=== PATIENT | male | born 2000 | race Caucasian/White ===

== ENCOUNTER 2023-01-27 17:11 | Emergency (ER) | payer BC ==
--- OUTSIDE RECORDS SUMMARY | 2023-01-27 17:15 | XMS REPORT | Continuity of Care Document ---
:2000 Author Organization [facility] t Address [address] [facility] [place] [address] Care Team Providers Name Role Phone АНДРЕЙ HERNANDEZ Primary Care Physician Unavailable TYLOR BARRETT Attending Clinician Unavailable TYLOR BARRETT Attending Clinician Unavailable FREDY HECK Attending Clinician Unavailable Tylor Barrett MD Attending Clinician KINJAL CANO Attending Clinician Unavailable Kinjal Cano PA-C Attending Clinician Unknown, Attending Attending Clinician Unavailable Fredy Heck MD Attending Clinician ANKUSH HANSON Attending Clinician Unavailable Ankush Hanson DO Attending Clinician [facility] Attending Clinician Unavailable Doctor Unassigned, [place] Attending Clinician Unavailable DAQUAN PONCE Attending Clinician Unavailable Daquan Trujillo Attending Clinician LANDRY DE JESUS Attending Clinician Unavailable Landry Moses Attending Clinician FRED MICHELLE Attending Clinician Unavailable Homero Ward DO Attending Clinician Melquiades Kemp MD Attending Clinician Rosio Odell RN Attending Clinician Unavailable Irma Salcido Attending Clinician IRMA LEARY Attending Clinician Unavailable LARISA LUND Attending Clinician Unavailable Larisa Lund MD Attending Clinician Cristi Rose Attending Clinician CRISTI RANGEL Attending Clinician Unavailable FREDY HECK Admitting Clinician Unavailable DAQUAN PONCE Admitting Clinician Unavailable LANDRY DE JESUS Admitting Clinician Unavailable FRED MICHELLE Admitting Clinician Unavailable LARISA LUND Admitting Clinician Unavailable CRISTI RANGEL Admitting Clinician Unavailable Payers Payer Name Policy Type Policy Number Effective Date Expiration Date S kadeem [employer] [place] - [id number] 2014 OUT OF STATE 00:00:00 [facility] [id number] 2017 00:00:00 CIGNA II [id number] 2020 00:00:00 Problems Condition Condition Condition Status Onset Resolution Last Treating Co mments Source Name Details Category Date Date Treatment Clinician Date Nicotine Nicotine Disease Active Unive rs dependence dependence 8- it y of , , 00:00: [place] unspecifie unspecifie 00 Me dical d, d, Branch uncomplica uncomplica dayday dayday COVID-19 COVID-19 Disease Active 2020-06 Unive rs 2-30 ity of 00:00: [place] 00 Medical Branch Exposure Exposure Disease Active 2020-06 Unive rs to severe to severe 2-30 ity of acute acute 00:00: [place] respirator respirator 00 Me dical y syndrome y syndrome Br anch coronaviru coronaviru s 2 s 2 (SARS-CoV- (SARS-CoV- 2) 2) Screening Screening Disease Active 2020-06 Uni vers for other for other 0-18 ity of specific specific 00:00: [place] viral and viral and 00 Medi agueda chlamydial chlamydial Br anch diseases diseases Chronic Chronic Disease Active Univers fatigue fatigue 8-13 ity of syndrome syndrome 00:00: [place] 00 Medical Branch Allergic Allergic Disease Active Unive rs rhinitis rhinitis 8-06 ity of 00:00: [place] 00 Medical Branch Anxiety Anxiety Disease Active Univers 8-06 ity of 00:00: [place] 00 Medical Branch Attention- Attention- Disease Active U nivers deficit deficit 8-06 ity of hyperactiv [place]activ [place] 00 Medical disorder, disorder, Bran ch unspecifie unspecifie d type d type Depressive Depressive Disease Active U nivers disorder disorder 01-26 ity of 00:00: [place] 00 Medical Branch Gastroesop Gastroesop Disease Active U nivers hageal hageal 01-26 ity of reflux reflux 00:00: [place] disease disease 00 Medical Branch Supraventr Supraventr Disease Active U nivers icular icular 01-26 ity of tachycardi tachycardi [place] Acute Acute Disease Active Univers postoperat postoperat 11-21 it y of lefty lefty 00:00: [place] abdominal abdominal 00 [facility] pain pain Branch Allergies, Adverse Reactions, Alerts Allergy Allergy Status Severity Reaction(s) Onset Inactive Treating Comm ents Source Name Type Date Date Clinician NO KNOWN Drug Active [facility] Social History Social Habit Start Date Stop Date Quantity Comments Source History of Smokes tobacco [facility] tobacco use daily [facility] Exposure to 2022-04-21 2022-05-01 Not sure [facility] SARS-CoV-2 00:00:00 14:14:00 [facility] (event) Branch Alcohol intake 2022-05-01 2022-05-01 Current University of 00:00:00 00:00:00 non-drinker of [facility] alcohol (finding) Branch Tobacco use and 2022-03-14 2022-03-14 Smokeless tobacco Un iversity of exposure 00:00:00 00:00:00 non-user [facility] Tobacco Comment 2022-03-14 2022-03-14 Pt. vapes daily Univ ersity of 00:00:00 00:00:00 [facility] Sex Assigned At 2000 2000 Universit y of 00:00:00 00:00:00 [facility] Smoking Status Start Date Stop Date Source Smokes tobacco daily 2022-03-14 00:00:00 [facility] it of [facility] Never smoker [facility] Medications Ordered Filled Start Stop Current Ordering Indication Dosage Frequency Signature Comments Components Source Medication Medication Date Date Medication? Clinician (SIG) Name Name amoxicillin 2021-06- No [id number] 1{tbl} Take 1 Univers -clavulanat 06-29 11-15 tablet by it y of e 00:00: 05:59 mouth in [place] (AUGMENTIN) 00 :00 the Medical 875-125 mg morning Branch per tablet and 1 tablet in the evening. Do all this for 7 days. amoxicillin 2021-06- No [id number] 1{tbl} Take 1 Univers -clavulanat 1-07 11-15 tablet by it y of e 00:00: 05:59 mouth in [place] (AUGMENTIN) 00 :00 the Medical 875-125 mg morning Branch per tablet and 1 tablet in the evening. Do all this for 7 days. amoxicillin 2021-06- No [id number] 1{tbl} Take 1 Univers -clavulanat 1-07 11-15 tablet by it y of e 00:00: 05:59 mouth in [place] (AUGMENTIN) 00 :00 the Medical 875-125 mg morning Branch per tablet and 1 tablet in the evening. Do all this for 7 days. amoxicillin 2021-06- No [id number] 1{tbl} Take 1 Univers -clavulanat 1-07 11-15 tablet by it y of e 00:00: 05:59 mouth in [place] (AUGMENTIN) 00 :00 the Medical 875-125 mg morning Branch per tablet and 1 tablet in the evening. Do all this for 7 days. NaCl 0.9% 2021- No 1000mL at 999 Uni vers (NS) bolus 8-30 08-30 mL/hr, ity of infusion 03:30: 04:00 1,000 mL, [place] as 1,000 mL 00 :00 IV Medical Infusion, Branch ONCE, 1 dose, On Fri02/18/22 at 2230, JOSE cyclobenzap 2021- No 10mg 10 mg, Uni vers rine 12-27 Oral, ity of (FLEXERIL) 04:15: 03:12 ONCE, 1 [place] as tablet 10 00 :00 dose, On Medica l mg Fri12/26/21 Branch at 2315, Routine ketorolac 2021- No 30mg 30 mg, Unive rs (TORADOL) 12-27 Intramuscu ity of injection 03:15: 03:12 [place], ONCE, [place] 30 mg 00 :00 1 dose, On Medical Fri12/26/21 Branch at 2215, JOSE ibuprofen 2-0 Yes [id number] 800mg Take 1 Univers 800 mg 7-06 tablet by ity of tablet 00:00: mouth [place] 00 every 8 Medical (eight) Branch hours as needed for Pain (scale 4-6). methocarbam 2022-0 Yes [id number] 750mg Take 1 Univers oL 7-06 tablet by ity of (ROBAXIN-75 00:00: mouth 4 [place] 0) 750 mg 00 (four) Medical tablet times Branch daily as needed for Pain (scale 7-10). ibuprofen 2022-0 Yes [id number] 800mg Take 1 Univers 800 mg 7-06 tablet by ity of tablet 00:00: mouth [place] 00 every 8 Medical (eight) Branch hours as needed for Pain (scale 4-6). methocarbam 2022-0 Yes [id number] 750mg Take 1 Univers oL 7-06 tablet by ity of (ROBAXIN-75 00:00: mouth 4 [place] 0) 750 mg 00 (four) Medical tablet times Branch daily as needed for Pain (scale 7-10). ibuprofen 2-0 Yes [id number] 800mg Take 1 Univers 800 mg 7-06 tablet by ity of tablet 00:00: mouth [place] 00 every 8 Medical (eight) Branch hours as needed for Pain (scale 4-6). methocarbam 2022-0 Yes [id number] 750mg Take 1 Univers oL 7-06 tablet by ity of (ROBAXIN-75 00:00: mouth 4 [place] 0) 750 mg 00 (four) Medical tablet times Branch daily as needed for Pain (scale 7-10). ibuprofen 2-0 Yes [id number] 800mg Take 1 Univers 800 mg 7-06 tablet by ity of tablet 00:00: mouth [place] 00 every 8 Medical (eight) Branch hours as needed for Pain (scale 4-6). methocarbam 2022-0 Yes [id number] 750mg Take 1 Univers oL 7-06 tablet by ity of (ROBAXIN-75 00:00: mouth 4 [place] 0) 750 mg 00 (four) Medical tablet times Branch daily as needed for Pain (scale 7-10). ibuprofen 2022-0 Yes [id number] 800mg Take 1 Univers 800 mg 7-06 tablet by ity of tablet 00:00: mouth [place] 00 every 8 Medical (eight) Branch hours as needed for Pain (scale 4-6). methocarbam 2022-0 Yes [id number] 750mg Take 1 Univers oL 7-06 tablet by ity of (ROBAXIN-75 00:00: mouth 4 [place] 0) 750 mg 00 (four) Medical tablet times Branch daily as needed for Pain (scale 7-10). ibuprofen 2-0 Yes [id number] 800mg Take 1 Univers 800 mg 7-06 tablet by ity of tablet 00:00: mouth [place] 00 every 8 Medical (eight) Branch hours as needed for Pain (scale 4-6). methocarbam 2022-0 Yes [id number] 750mg Take 1 Univers oL 7-06 tablet by ity of (ROBAXIN-75 00:00: mouth 4 [place] 0) 750 mg 00 (four) Medical tablet times Branch daily as needed for Pain (scale 7-10). ibuprofen 2021-0 Yes [id number] 800mg Take 1 Univers 800 mg 7-06 tablet by ity of tablet 00:00: mouth [place] 00 every 8 Medical (eight) Branch hours as needed for Pain (scale 4-6). methocarbam 2-0 Yes [id number] 750mg Take 1 Univers oL 7-06 tablet by ity of (ROBAXIN-75 00:00: mouth 4 [place] 0) 750 mg 00 (four) Medical tablet times Branch daily as needed for Pain (scale 7-10). ibuprofen 2-0 Yes [id number] 800mg Take 1 Univers 800 mg 7-06 tablet by ity of tablet 00:00: mouth [place] 00 every 8 Medical (eight) Branch hours as needed for Pain (scale 4-6). methocarbam 2022-0 Yes [id number] 750mg Take 1 Univers oL 7-06 tablet by ity of (ROBAXIN-75 00:00: mouth 4 [place] 0) 750 mg 00 (four) Medical tablet times Branch daily as needed for Pain (scale 7-10). ibuprofen 2022-0 Yes [id number] 800mg Take 1 Univers 800 mg 7-06 tablet by ity of tablet 00:00: mouth [place] 00 every 8 Medical (eight) Branch hours as needed for Pain (scale 4-6). methocarbam 2022-0 Yes [id number] 750mg Take 1 Univers oL 7-06 tablet by ity of (ROBAXIN-75 00:00: mouth 4 [place] 0) 750 mg 00 (four) Medical tablet times Branch daily as needed for Pain (scale 7-10). ibuprofen 2021-0 Yes [id number] 800mg Take 1 Univers 800 mg 7-06 tablet by ity of tablet 00:00: mouth [place] 00 every 8 Medical (eight) Branch hours as needed for Pain (scale 4-6). methocarbam 2021-0 Yes [id number] 750mg Take 1 Univers oL 7-06 tablet by ity of (ROBAXIN-75 00:00: mouth 4 [place] 0) 750 mg 00 (four) Medical tablet times Branch daily as needed for Pain (scale 7-10). ibuprofen 2021-0 Yes [id number] 800mg Take 1 Univers 800 mg 7-06 tablet by ity of tablet 00:00: mouth [place] 00 every 8 Medical (eight) Branch hours as needed for Pain (scale 4-6). methocarbam 2021-0 Yes [id number] 750mg Take 1 Univers oL 7-06 tablet by ity of (ROBAXIN-75 00:00: mouth 4 [place] 0) 750 mg 00 (four) Medical tablet times Branch daily as needed for Pain (scale 7-10). ibuprofen 2021-0 Yes [id number] 800mg Take 1 Univers 800 mg 7-06 tablet by ity of tablet 00:00: mouth [place] 00 every 8 Medical (eight) Branch hours as needed for Pain (scale 4-6). methocarbam 2021-0 Yes [id number] 750mg Take 1 Univers oL 7-06 tablet by ity of (ROBAXIN-75 00:00: mouth 4 [place] 0) 750 mg 00 (four) Medical tablet times Branch daily as needed for Pain (scale 7-10). ibuprofen 2021-0 Yes [id number] 800mg Take 1 Univers 800 mg 7-06 tablet by ity of tablet 00:00: mouth [place] 00 every 8 Medical (eight) Branch hours as needed for Pain (scale 4-6). methocarbam 2022-0 Yes [id number] 750mg Take 1 Univers oL 7-06 tablet by ity of (ROBAXIN-75 00:00: mouth 4 [place] 0) 750 mg 00 (four) Medical tablet times Branch daily as needed for Pain (scale 7-10). ibuprofen 2022-0 Yes [id number] 800mg Take 1 Univers 800 mg 7-06 tablet by ity of tablet 00:00: mouth [place] 00 every 8 Medical (eight) Branch hours as needed for Pain (scale 4-6). methocarbam 2022-0 Yes [id number] 750mg Take 1 Univers oL 7-06 tablet by ity of (ROBAXIN-75 00:00: mouth 4 [place] 0) 750 mg 00 (four) Medical tablet times Branch daily as needed for Pain (scale 7-10). ibuprofen 2-0 Yes [id number] 800mg Take 1 Univers 800 mg 7-06 tablet by ity of tablet 00:00: mouth [place] 00 every 8 Medical (eight) Branch hours as needed for Pain (scale 4-6). methocarbam 2022-0 Yes [id number] 750mg Take 1 Univers oL 7-06 tablet by ity of (ROBAXIN-75 00:00: mouth 4 [place] 0) 750 mg 00 (four) Medical tablet times Branch daily as needed for Pain (scale 7-10). ibuprofen 2-0 Yes [id number] 800mg Take 1 Univers 800 mg 7-06 tablet by ity of tablet 00:00: mouth [place] 00 every 8 Medical (eight) Branch hours as needed for Pain (scale 4-6). methocarbam 2022-0 Yes [id number] 750mg Take 1 Univers oL 7-06 tablet by ity of (ROBAXIN-75 00:00: mouth 4 [place] 0) 750 mg 00 (four) Medical tablet times Branch daily as needed for Pain (scale 7-10). ibuprofen 2-0 Yes [id number] 800mg Take 1 Univers 800 mg 7-06 tablet by ity of tablet 00:00: mouth [place] 00 every 8 Medical (eight) Branch hours as needed for Pain (scale 4-6). methocarbam 2022-0 Yes [id number] 750mg Take 1 Univers oL 7-06 tablet by ity of (ROBAXIN-75 00:00: mouth 4 [place] 0) 750 mg 00 (four) Medical tablet times Branch daily as needed for Pain (scale 7-10). ibuprofen 2022-0 Yes [id number] 800mg Take 1 Univers 800 mg 7-06 tablet by ity of tablet 00:00: mouth [place] 00 every 8 Medical (eight) Branch hours as needed for Pain (scale 4-6). methocarbam 2021-0 Yes [id number] 750mg Take 1 Univers oL 7-06 tablet by ity of (ROBAXIN-75 00:00: mouth 4 [place] 0) 750 mg 00 (four) Medical tablet times Branch daily as needed for Pain (scale 7-10). ibuprofen 2021-0 Yes [id number] 800mg Take 1 Univers 800 mg 7-06 tablet by ity of tablet 00:00: mouth [place] 00 every 8 Medical (eight) Branch hours as needed for Pain (scale 4-6). methocarbam 2021-0 Yes [id number] 750mg Take 1 Univers oL 7-06 tablet by ity of (ROBAXIN-75 00:00: mouth 4 [place] 0) 750 mg 00 (four) Medical tablet times Branch daily as needed for Pain (scale 7-10). acetaminoph 2020-0 2020- No 1{tbl} 1 tablet, Univers en-codeine -12 26-07 Oral, ity of (TYLENOL 05:00: 04:14 ONCE, 1 [place] #3) 300-30 00 :00 dose, [place] Medi agueda mg tablet 1 11/28/19 at [facility] tablet 0000, JOSE acetaminoph 2020-0 2020- No 1{tbl} 1 tablet, Univers en-codeine 6-12 26-07 Oral, ity of (TYLENOL 05:00: 04:14 ONCE, 1 [place] #3) 300-30 00 :00 dose, [place] Medi agueda mg tablet 1 11/28/19 at [facility] tablet 0000, JOSE acetaminoph 2020-0 Yes [id number] 1{tbl} Take 1 Univers en-codeine 6-07 [id number] tablet by it y of 300-30 mg 00:00: mouth [place] tablet 00 every 6 Medical (six) Branch hours as needed for Pain (scale 4-6). acetaminoph 2020-0 Yes [id number] 1{tbl} Take 1 Univers en-codeine 6-07 [id number] tablet by it y of 300-30 mg 00:00: mouth [place] tablet 00 every 6 Medical (six) Branch hours as needed for Pain (scale 4-6). acetaminoph 2020-0 Yes [id number] 1{tbl} Take 1 Univers en-codeine 6-07 [id number] tablet by it y of 300-30 mg 00:00: mouth [place] tablet 00 every 6 Medical (six) Branch hours as needed for Pain (scale 4-6). acetaminoph 2020-0 Yes [id number] 1{tbl} Take 1 Univers en-codeine 6-07 [id number] tablet by it y of 300-30 mg 00:00: mouth [place] tablet 00 every 6 Medical (six) Branch hours as needed for Pain (scale 4-6). acetaminoph 2020-0 Yes [id number] 1{tbl} Take 1 Univers en-codeine 6-07 [id number] tablet by it y of 300-30 mg 00:00: mouth [place] tablet 00 every 6 Medical (six) Branch hours as needed for Pain (scale 4-6). acetaminoph 2020-0 Yes [id number] 1{tbl} Take 1 Univers en-codeine 6-07 [id number] tablet by it y of 300-30 mg 00:00: mouth [place] tablet 00 every 6 Medical (six) Branch hours as needed for Pain (scale 4-6). acetaminoph 2020-0 Yes [id number] 1{tbl} Take 1 Univers en-codeine 6-07 [id number] tablet by it y of 300-30 mg 00:00: mouth [place] tablet 00 every 6 Medical (six) Branch hours as needed for Pain (scale 4-6). acetaminoph 2020-0 Yes [id number] 1{tbl} Take 1 Univers en-codeine 6-07 [id number] tablet by it y of 300-30 mg 00:00: mouth [place] tablet 00 every 6 Medical (six) Branch hours as needed for Pain (scale 4-6). acetaminoph 2020-0 Yes [id number] 1{tbl} Take 1 Univers en-codeine 6-07 [id number] tablet by it y of 300-30 mg 00:00: mouth [place] tablet 00 every 6 Medical (six) Branch hours as needed for Pain (scale 4-6). acetaminoph 2020-0 Yes [id number] 1{tbl} Take 1 Univers en-codeine 6-07 [id number] tablet by it y of 300-30 mg 00:00: mouth [place] tablet 00 every 6 Medical (six) Branch hours as needed for Pain (scale 4-6). acetaminoph 2020-0 Yes [id number] 1{tbl} Take 1 Univers en-codeine 6-07 [id number] tablet by it y of 300-30 mg 00:00: mouth [place] tablet 00 every 6 Medical (six) Branch hours as needed for Pain (scale 4-6). acetaminoph 2020-0 Yes [id number] 1{tbl} Take 1 Univers en-codeine 6-07 [id number] tablet by it y of 300-30 mg 00:00: mouth [place] tablet 00 every 6 Medical (six) Branch hours as needed for Pain (scale 4-6). acetaminoph 2020-0 Yes [id number] 1{tbl} Take 1 Univers en-codeine 6-07 [id number] tablet by it y of 300-30 mg 00:00: mouth [place] tablet 00 every 6 Medical (six) Branch hours as needed for Pain (scale 4-6). acetaminoph 2020-0 Yes [id number] 1{tbl} Take 1 Univers en-codeine 6-07 [id number] tablet by it y of 300-30 mg 00:00: mouth [place] tablet 00 every 6 Medical (six) Branch hours as needed for Pain (scale 4-6). acetaminoph 2020-0 Yes [id number] 1{tbl} Take 1 Univers en-codeine 6-07 [id number] tablet by it y of 300-30 mg 00:00: mouth [place] tablet 00 every 6 Medical (six) Branch hours as needed for Pain (scale 4-6). acetaminoph 2020-0 Yes [id number] 1{tbl} Take 1 Univers en-codeine 6-07 [id number] tablet by it y of 300-30 mg 00:00: mouth [place] tablet 00 every 6 Medical (six) Branch hours as needed for Pain (scale 4-6). acetaminoph 2020-0 Yes [id number] 1{tbl} Take 1 Univers en-codeine 6-07 [id number] tablet by it y of 300-30 mg 00:00: mouth [place] tablet 00 every 6 Medical (six) Branch hours as needed for Pain (scale 4-6). acetaminoph 2020-0 Yes [id number] 1{tbl} Take 1 Univers en-codeine 6-07 [id number] tablet by it y of 300-30 mg 00:00: mouth [place] tablet 00 every 6 Medical (six) Branch hours as needed for Pain (scale 4-6). acetaminoph 2020-0 Yes [id number] 1{tbl} Take 1 Univers en-codeine 6-07 [id number] tablet by it y of 300-30 mg 00:00: mouth [place] tablet 00 every 6 Medical (six) Branch hours as needed for Pain (scale 4-6). acetaminoph 2020-0 Yes [id number] 1{tbl} Take 1 Univers en-codeine 6-07 [id number] tablet by it y of 300-30 mg 00:00: mouth [place] tablet 00 every 6 Medical (six) Branch hours as needed for Pain (scale 4-6). acetaminoph 2020-0 Yes [id number] 1{tbl} Take 1 Univers en-codeine 6-07 [id number] tablet by it y of 300-30 mg 00:00: mouth [place] tablet 00 every 6 Medical (six) Branch hours as needed for Pain (scale 4-6). acetaminoph 2020-0 Yes [id number] 1{tbl} Take 1 Univers en-codeine 6-07 [id number] tablet by it y of 300-30 mg 00:00: mouth [place] tablet 00 every 6 Medical (six) Branch hours as needed for Pain (scale 4-6). acetaminoph 2020-0 Yes [id number] 1{tbl} Take 1 Univers en-codeine 6-07 [id number] tablet by it y of 300-30 mg 00:00: mouth [place] tablet 00 every 6 Medical (six) Branch hours as needed for Pain (scale 4-6). acetaminoph 2020-0 Yes [id number] 1{tbl} Take 1 Univers en-codeine 6-07 [id number] tablet by it y of 300-30 mg 00:00: mouth [place] tablet 00 every 6 Medical (six) Branch hours as needed for Pain (scale 4-6). acetaminoph 2020-0 Yes [id number] 1{tbl} Take 1 Univers en-codeine 6-07 [id number] tablet by it y of 300-30 mg 00:00: mouth [place] tablet 00 every 6 Medical (six) Branch hours as needed for Pain (scale 4-6). acetaminoph 2020-0 Yes [id number] 1{tbl} Take 1 Univers en-codeine 6-07 [id number] tablet by it y of 300-30 mg 00:00: mouth [place] tablet 00 every 6 Medical (six) Branch hours as needed for Pain (scale 4-6). acetaminoph 2020-0 Yes [id number] 1{tbl} Take 1 Univers en-codeine 6-07 [id number] tablet by it y of 300-30 mg 00:00: mouth [place] tablet 00 every 6 Medical (six) Branch hours as needed for Pain (scale 4-6). acetaminoph 2020-0 Yes [id number] 1{tbl} Take 1 Univers en-codeine 6-07 [id number] tablet by it y of 300-30 mg 00:00: mouth [place] tablet 00 every 6 Medical (six) Branch hours as needed for Pain (scale 4-6). acetaminoph 2020-0 Yes [id number] 1{tbl} Take 1 Univers en-codeine 6-07 [id number] tablet by it y of 300-30 mg 00:00: mouth [place] tablet 00 every 6 Medical (six) Branch hours as needed for Pain (scale 4-6). acetaminoph 2020-0 Yes [id number] 1{tbl} Take 1 Univers en-codeine 6-07 [id number] tablet by it y of 300-30 mg 00:00: mouth [place] tablet 00 every 6 Medical (six) Branch hours as needed for Pain (scale 4-6). acetaminoph 2020-0 Yes [id number] 1{tbl} Take 1 Univers en-codeine 6-07 [id number] tablet by it y of 300-30 mg 00:00: mouth [place] tablet 00 every 6 Medical (six) Branch hours as needed for Pain (scale 4-6). acetaminoph 2020-0 Yes [id number] 1{tbl} Take 1 Univers en-codeine 6-07 [id number] tablet by it y of 300-30 mg 00:00: mouth [place] tablet 00 every 6 Medical (six) Branch hours as needed for Pain (scale 4-6). acetaminoph 2020-0 Yes [id number] 1{tbl} Take 1 Univers en-codeine 6-07 [id number] tablet by it y of 300-30 mg 00:00: mouth [place] tablet 00 every 6 Medical (six) Branch hours as needed for Pain (scale 4-6). acetaminoph 2020-0 Yes [id number] 1{tbl} Take 1 Univers en-codeine 6-07 [id number] tablet by it y of 300-30 mg 00:00: mouth [place] tablet 00 every 6 Medical (six) Branch hours as needed for Pain (scale 4-6). acetaminoph 2019-0 Yes [id number] 1{tbl} Take 1 Univers en-codeine 11-27 [id number] tablet by it y of 300-30 mg 00:00: mouth [place] tablet 00 every 6 Medical (six) Branch hours as needed for Pain (scale 4-6). acetaminoph 2020- No [id number] 1{tbl} Take 1 Univers en-codeine 6- 06- [id number] tablet by i ty of 300-30 mg 00:00: 00:00 mouth [place] tablet 00 :00 every 6 Medical (six) Branch hours as needed for Pain (scale 4-6). lisdexamfet Yes 50mg Take 50 mg Univers amine 50 mg 6-02 by mouth ity of capsule 14:57: as needed. [address] lisdexamfet Yes 50mg Take 50 mg Univers amine 50 mg 6-02 by mouth ity of capsule 14:57: as needed. [address] lisdexamfet Yes 50mg Take 50 mg Univers amine 50 mg 6-02 by mouth ity of capsule 14:57: as needed. [address] lisdexamfet Yes 50mg Take 50 mg Univers amine 50 mg 6-02 by mouth ity of capsule 14:57: as needed. [address] lisdexamfet Yes 50mg Take 50 mg Univers amine 50 mg 6-02 by mouth ity of capsule 14:57: as needed. [address] lisdexamfet Yes 50mg Take 50 mg Univers amine 50 mg 6-02 by mouth ity of capsule 14:57: as needed. [address] lisdexamfet Yes 50mg Take 50 mg Univers amine 50 mg 6-02 by mouth ity of capsule 14:57: as needed. [address] lisdexamfet Yes 50mg Take 50 mg Univers amine 50 mg 6-02 by mouth ity of capsule 14:57: as needed. [address] lisdexamfet Yes 50mg Take 50 mg Univers amine 50 mg 6-02 by mouth ity of capsule 14:57: as needed. [address] [facility] Yes 50mg Take 50 mg Univers amine 50 mg 6-02 by mouth ity of capsule 14:57: as needed. [address] [facility] Yes 50mg Take 50 mg Univers amine 50 mg 6-02 by mouth ity of capsule 14:57: as needed. [address] Yes 50mg Take 50 mg Univers amine 50 mg 6-02 by mouth ity of capsule 14:57: as needed. [address] [facility] Yes 50mg Take 50 mg Univers amine 50 mg 6-02 by mouth ity of capsule 14:57: as needed. [address] Yes 50mg Take 50 mg Univers amine 50 mg 6-02 by mouth ity of capsule 14:57: as needed. [address] Yes 50mg Take 50 mg Univers amine 50 mg 6-02 by mouth ity of capsule 14:57: as needed. [address] Yes 50mg Take 50 mg Univers amine 50 mg 6-02 by mouth ity of capsule 09:57: as needed. [address] Yes 50mg Take 50 mg Univers amine 50 mg 6-02 by mouth ity of capsule 09:57: as needed. [address] Yes 50mg Take 50 mg Univers amine 50 mg 6-02 by mouth ity of capsule 09:57: as needed. [address] Yes 50mg Take 50 mg Univers amine 50 mg 6-02 by mouth ity of capsule 09:57: as needed. [address] Yes 50mg Take 50 mg Univers amine 50 mg 6-02 by mouth ity of capsule 09:57: as needed. [address] [facility] Yes 50mg Take 50 mg Univers amine 50 mg 6-02 by mouth ity of capsule 09:57: as needed. [address] Yes 50mg Take 50 mg Univers amine 50 mg 6-02 by mouth ity of capsule 09:57: as needed. [address] Yes 50mg Take 50 mg Univers amine 50 mg 6-02 by mouth ity of capsule 09:57: as needed. [address] Yes 50mg Take 50 mg Univers amine 50 mg 6-02 by mouth ity of capsule 09:57: as needed. [address] Yes 50mg Take 50 mg Univers amine 50 mg 6-02 by mouth ity of capsule 09:57: as needed. [address] Yes 50mg Take 50 mg Univers amine 50 mg 6-02 by mouth ity of capsule 09:57: as needed. [address] Yes 50mg Take 50 mg Univers amine 50 mg 6-02 by mouth ity of capsule 09:57: as needed. [address] Yes 50mg Take 50 mg Univers amine 50 mg 6-02 by mouth ity of capsule 09:57: as needed. [address] Yes 50mg Take 50 mg Univers amine 50 mg 6-02 by mouth ity of capsule 09:57: as needed. [address] Yes 50mg Take 50 mg Univers amine 50 mg 6-02 by mouth ity of capsule 09:57: as needed. [address] Yes 50mg Take 50 mg Univers amine 50 mg 6-02 by mouth ity of capsule 09:57: as needed. [address] Yes 50mg Take 50 mg Univers amine 50 mg 6-02 by mouth ity of capsule 09:57: as needed. [address] Yes 50mg Take 50 mg Univers amine 50 mg 6-02 by mouth ity of capsule 09:57: as needed. [address] Yes 50mg Take 50 mg Univers amine 50 mg 6-02 by mouth ity of capsule 09:57: as needed. Kaden arboleda [address] [place] [address] lisdexamfet 2018-0 Yes 50mg Take 50 mg Univers amine 50 mg 6-02 by mouth ity of capsule 09:57: as needed. [facility] [address] [place] [address] Vital Signs Vital Name Observation Time Observation Value Comments Source Systolic blood 2022-05-01 20:37:00 127 mm[Hg] [facility]iver [facility] Diastolic blood 2022-05-01 20:37:00 81 mm[Hg] Unive rsity [facility] Heart rate 2022-05-01 20:37:00 98 /min Universi ty [facility] Respiratory rate 2022-05-01 20:37:00 19 /min [facility] Body height 2022-05-01 20:37:00 180.3 cm Universi ty [facility] Body weight 2022-05-01 20:37:00 132.45 kg Universi ty [facility] BMI 2022-05-01 20:37:00 40.73 kg/m2 [facility] [place] [facility] [place] Oxygen saturation in 2022-05-01 20:37:00 95 /min University of Arterial blood by [place] [employer] Pulse oximetry Branch Systolic blood 2022-04-30 00:04:00 137 mm[Hg] Univer sity [facility] Diastolic blood 2022-04-30 00:04:00 82 mm[Hg] Unive rsity [facility] Heart rate 2022-04-30 00:03:00 88 /min Universi ty [facility] Body temperature 2022-04-30 00:03:00 37.28 Sepideh Univ ersity [facility] Respiratory rate 2022-04-30 00:03:00 18 /min Univ ersity [facility] Body height 2022-04-30 00:03:00 180.3 cm [facility]i ty [facility] [place] [facility] [place] Body weight 2022-04-30 00:03:00 132.224 kg [facility] [place] [facility] [place] BMI 2022-04-30 00:03:00 40.66 kg/m2 Universi ty of [facility] Oxygen saturation in 2022-04-30 00:03:00 99 /min University of Arterial blood by [place] [employer] Pulse oximetry Branch Systolic blood 2022-04-02 04:30:00 118 mm[Hg] Univer sity of [facility] Diastolic blood 2022-04-02 04:30:00 67 mm[Hg] Unive rsity of [facility] Heart rate 2022-04-02 04:30:00 67 /min Universi ty [facility] Respiratory rate 2022-04-02 04:30:00 16 /min Univ ersity [facility] Oxygen saturation in 2022-04-02 04:30:00 98 /min University of Arterial blood by [facility] Pulse oximetry Branch Body temperature 2022-04-02 02:36:00 37 Sepideh Univ ersity [facility] [place] [facility] Body height 2022-04-02 02:36:00 177.8 cm Universi ty [facility] [place] [facility] Body weight 2022-04-02 02:36:00 129.729 kg [facility]i ty [facility] [place] [facility] BMI 2022-04-02 02:36:00 41.04 kg/m2 Universi ty [facility] Systolic blood 2022-03-14 19:36:00 126 mm[Hg] Univer sity of [facility] [place] [facility] Diastolic blood 2022-03-14 19:36:00 83 mm[Hg] Unive rsity of [facility] [place] [facility] Heart rate 2022-03-14 19:36:00 85 /min Universi ty [facility] Respiratory rate 2022-03-14 19:36:00 21 /min Univ ersity [facility] [place] [facility] Body height 2022-03-14 19:36:00 180.3 cm [facility]i [facility] Body weight 2022-03-14 19:36:00 128.867 kg [facility]i [facility] BMI 2022-03-14 19:36:00 39.62 kg/m2 [facility] Oxygen saturation in 2022-03-14 19:36:00 97 /min University of Arterial blood by [facility] Pulse oximetry Branch Systolic blood 2022-02-19 04:29:00 119 mm[Hg] Univer sity of [facility] Diastolic blood 2022-02-19 04:29:00 66 mm[Hg] Unive rsity of [facility] [place] [facility] Heart rate 2022-02-19 04:29:00 80 /min Universi ty [facility] Respiratory rate 2022-02-19 04:29:00 18 /min Univ ersity [facility] [place] [facility] Oxygen saturation in 2022-02-19 04:29:00 98 /min University of Arterial blood by [facility] Pulse oximetry Branch Body temperature 2022-02-19 02:28:00 37.17 Sepideh Univ ersity [facility] [place] [facility] Body height 2022-02-19 02:28:00 177.8 cm [facility]i [facility] [place] [facility] Body weight 2022-02-19 02:28:00 130.092 kg [facility] [place] [facility] BMI 2022-02-19 02:28:00 41.15 kg/m2 [facility] [place] [facility] Systolic blood 2021-12-27 02:46:00 170 mm[Hg] Univer sity of [facility] [place] [facility] Diastolic blood 2021-12-27 02:46:00 92 mm[Hg] Unive rsity of [facility] [place] [facility] Heart rate 2021-12-27 02:46:00 103 /min Universi ty [facility] [place] [facility] Body temperature 2021-12-27 02:46:00 37.44 Sepideh Univ ersity [facility] [place] [facility] Respiratory rate 2021-12-27 02:46:00 18 /min Univ ersity [facility] [place] [facility] Body height 2021-12-27 02:46:00 180.3 cm [facility]i [facility] [place] [facility] Body weight 2021-12-27 02:46:00 127.007 kg [facility] [place] [facility] BMI 2021-12-27 02:46:00 39.05 kg/m2 [facility] [place] [facility] Oxygen saturation in 2021-12-27 02:46:00 98 /min University of Arterial blood by [facility] Pulse oximetry Branch Systolic blood 2020-01-16 08:39:00 116 mm[Hg] Univer sity of [facility] [place] [facility] Diastolic blood 2020-01-16 08:39:00 74 mm[Hg] Unive rsity of [facility] [place] [facility] Body temperature 2020-01-16 08:39:00 37.17 Sepideh Univ ersity [facility] [place] [facility] Heart rate 2020-01-16 08:31:00 90 /min [facility]i ty [facility] [place] [facility] Respiratory rate 2020-01-16 08:31:00 16 /min Univ ersity [facility] [place] [facility] Body height 2020-01-16 08:31:00 177.8 cm [facility] [place] [facility] Body weight 2020-01-16 08:31:00 127.007 kg [facility] [place] [facility] BMI 2020-01-16 08:31:00 40.18 kg/m2 [facility] [place] [facility] Oxygen saturation in 2020-01-16 08:31:00 100 /min University of Arterial blood by [facility] Pulse oximetry Branch Systolic blood 2020-01-16 08:39:00 116 mm[Hg] Univer sity of [facility] [place] [facility] Diastolic blood 2020-01-16 08:39:00 74 mm[Hg] Unive rsity of [facility] [place] [facility] Body temperature 2020-01-16 08:39:00 37.17 Sepideh Univ ersity [facility] [place] [facility] Heart rate 2020-01-16 08:31:00 90 /min [facility]i ty [facility] [place] [facility] Respiratory rate 2020-01-16 08:31:00 16 /min Univ ersity [facility] [place] [facility] Body height 2020-01-16 08:31:00 177.8 cm [facility] [place] [facility] Body weight 2020-01-16 08:31:00 127.007 kg [facility] [place] [facility] BMI 2020-01-16 08:31:00 40.18 kg/m2 [facility] [place] [facility] Oxygen saturation in 2020-01-16 08:31:00 100 /min University of Arterial blood by [facility] Pulse oximetry Branch Systolic blood 2020-01-05 18:22:00 116 mm[Hg] Univer sity of [facility] [place] [facility] Diastolic blood 2020-01-05 18:22:00 79 mm[Hg] Unive rsity of [facility] [place] [facility] Heart rate 2020-01-05 18:22:00 74 /min Universi ty [facility] [place] [facility] Body weight 2020-01-05 18:22:00 141.976 kg [facility] [place] [facility] Systolic blood 2020-01-05 18:22:00 116 mm[Hg] Univer sity of [facility] [place] [facility] Diastolic blood 2020-01-05 18:22:00 79 mm[Hg] Unive rsity of [facility] [place] [facility] Heart rate 2020-01-05 18:22:00 74 /min Universi ty [facility] [place] [facility] Body weight 2020-01-05 18:22:00 141.976 kg [facility] Systolic blood 2019-12-15 19:03:00 121 mm[Hg] Univer sit of pressure [facility] Diastolic blood 2019-12-15 19:03:00 84 mm[Hg] Unive rsity of pressure [facility] Heart rate 2019-12-15 19:03:00 99 /min [facility] Systolic blood 2019-11-28 03:37:00 165 mm[Hg] Univer sit of pressure [facility] Diastolic blood 2019-11-28 03:37:00 100 mm[Hg] Unive rsity of [facility] Heart rate 2019-11-28 03:37:00 101 /min [facility] Body temperature 2019-11-28 03:37:00 36.78 Sepideh [facility] Respiratory rate 2019-11-28 03:37:00 16 /min [facility] Body weight 2019-11-28 03:37:00 141.999 kg [facility] Oxygen saturation in 2019-11-28 03:37:00 97 /min [facility] blood by [facility] Pulse oximetry [place] Procedures Procedure Date / Time Performing Clinician Source Performed POCT MOLECULAR FLU 2022-04-30 00:05:00 Unknown, Attending [facility] MAGNESIUM 2022-04-02 03:45:00 [facility] TROPONIN I 2022-04-02 03:45:00 [facility] COMP. METABOLIC PANEL 2022-04-02 03:45:00 Singer Ankush [facility] ([id number]) [facility] CBC WITH DIFF 2022-04-02 03:45:00 [facility] SLEEP STUDY DATA REPORT 2022-03-28 05:01:00 Doctor Unahali, [facility] Name Medical [place] INSURANCE CORRESPONDENCE 2022-03-18 05:01:00 Doctor Malissa, [facility] Name Medical [place] CONSENT/REFUSAL FOR 2022-03-14 19:04:49 Doctor Malissa [facility] DIAGNOSIS AND TREATMENT [place] [facility] EKG-12 LEAD 2022-02-19 05:43:33 Ponce, Daquan [facility] TROPONIN I 2022-02-19 04:50:00 Daquan Ponce [facility] XR CHEST 2 VW 2022-02-19 03:12:00 Daquan Ponce [facility] TROPONIN I 2022-02-19 02:47:00 Daquan Ponce [facility] THYROID STIMULATING 2022-02-19 02:47:00 Daquan Ponce [facility] HORMONE [facility] Branch COMP. METABOLIC PANEL 2022-02-19 02:47:00 Daquan Ponce [facility] ([id number]) [facility] [place] CBC WITH DIFF 2022-02-19 02:47:00 Daquan Ponce [facility] URINALYSIS 2022-02-19 02:47:00 Daquan Ponce [facility] N-TERMINAL PRO-BNP 2022-02-19 02:47:00 Daquan Ponce [facility] URINE DRUG (IMMUNOASSAY) 2022-02-19 02:47:00 Daquan [facility] DRUG Medical [facility] nch SCREEN W/O REFLEX CONSENT/REFUSAL FOR 2022-02-19 02:21:07 Doctor Malissa [facility] DIAGNOSIS AND TREATMENT [place] [facility] [place] COVID-19 (ID NOW RAPID 2021-12-27 03:45:00 Landry De Jesus [facility] TESTING) Medical Branch CT CERVICAL SPINE WO 2021-12-27 03:36:36 Landry De Jesus [facility] CONTRAST Medical [place] CT HEAD WO CONTRAST 2021-12-27 03:36:36 Landry De Jesus [facility] CT LUMBAR SPINE WO 2021-12-27 03:36:36 Landry De Jesus [facility] CONTRAST Medical Branch CT THORACIC SPINE WO 2021-12-27 03:36:36 Landry De Jesus B [facility] CONTRAST Medical Branch NOTICE OF PRIVACY 2021-12-27 02:44:41 Doctor Malissa [facility] PRACTICES [place] [facility] CONSENT/REFUSAL FOR 2021-12-27 02:40:50 Doctor Malissa [facility] DIAGNOSIS AND TREATMENT [place] [facility] NOTICE OF PRIVACY 2021-06-23 04:27:38 Doctor Unassigned, [facility] [place] [facility] ASSIGNMENT OF BENEFITS 2020-01-16 08:26:08 Doctor Unassigned [facility] [place] [facility] NOTICE OF PRIVACY 2020-01-16 08:25:54 Doctor Eugeniasscornelio [facility] [place] [facility] CONSENT/REFUSAL FOR 2020-01-16 08:25:37 Doctor Unasscornelio, [facility] DIAGNOSIS AND TREATMENT [place] [facility] [place] XR FOOT 3+ VW LEFT 2019-12-15 18:52:12 Larisa Lund [facility] XR ANKLE 3+ VW BILATERAL 2019-11-28 04:10:00 Cristi Rangel [facility] XR FOOT 3+ VW LEFT 2019-11-28 04:10:00 Cristi Rangel [facility] XR TIBIA FIBULA 2 VW LEFT 2019-11-28 04:10:00 Cristi Rangel [facility] Encounters Start End Encounter Admission Attending Care Care Encounter Source Date/Time Date/Time Type Type Clinicians Facility Department ID 2021-04-20 Emergency [facility] [id number] [facility] 2022-08-24 2022-08-24 Outpatient R TYLOR BARRETT [facility] [id number] Univers 20:00:00 20:00:00 TYLOR BARRETT [facility] 2022-08-19 2022-08-19 Outpatient R TYLOR BARRETT [facility] [id number] Univers 20:00:00 20:00:[facility] 2022-05-03 2022-05-03 Outpatient R MARIA R [facility] [id number] Univers 08:59:09 23:59:00 FREDY quispe [facility] 2022-05-01 2022-05-01 Office Arnold [facility] [id number] Univers 14:30:00 15:00:00 Visit Tylor RIDLEY [id number] ity [place] [id number] La dical NAL 085 [facility] 2022-05-01 2022-05-01 Outpatient R LUIS BARRETTMODavid [facility] [id number] Univers 14:30:00 14:30:00 LUIS BARRETTDESTINIDavid itisis [facility] 2022-04-29 2022-04-29 Outpatient R OXANA [facility] [id number] Univers 18:00:00 18:22:24 KINJAL itisis [facility] 2022-04-29 2022-04-29 Urgent Kinjal Cano [facility] 1.2.840.114 [id number] Univers 18:00:00 18:22:24 Care Unknown, Attending HEALTH [id number] ity of [place] 4.2.7.2.686 [place] as LAMAR?BLEA [id number] La shruthi KNEY [address] [facility] OFFICE [facility] 2022 2022 Outpatient R MARIA R [facility] [id number] Univers 08:45:15 23:59:00 CHRISTIANAVA tashia o f [facility] 2022 2022 Patient Maria [facility] 1.2.840.114 [id number] Univers 00:00:00 00:00:00 Secure Msg Fredy KEYANA [id number] ity [facility] [place] [id number] La dical NAL 059 [facility] 2022-04-01 2022-04-02 Emergency X SINGER [facility] ERT [id number] Univers 21:46:00 00:04:00 ANKUSH tashia [facility] 2022-04-01 2022-04-02 Emergency [facility] [id number] Univers 21:46:00 00:04:00 Ankush KEYANA 350.1.13.10 i ty [facility] 4.2.[place] [id number] [facility] 084 [place] 2022-04-01 2022-04-01 Telephone Maria [facility] [id number] Univers 00:00:00 00:00:00 Fredy RIDLEY 350.1.13.10 ity [facility] [place] [id number] [place] [id number] [facility] 2022-03-29 2022-03-29 Outpatient R [facility] [id number] Univers 14:00:00 14:00:00 FREDY portery o f [facility] 2022-03-28 2022-03-28 Hearing Aid Mechanic [facility] Sleep Lab [facility] 1.2 .840.114 [id number] Univers 10:00:00 10:15:00 Visit Tylor Barrett 350.1.13. 10 ity [facility] 4[place]2.7.2.[place] [id number] [address] 2022-03-28 2022-03-28 Outpatient R TYLOR BARRETT [facility] [id number] Univers 10:00:00 10:00:00 TYLOR BARRETT ity of [facility] 2022-03-28 2022-03-28 Orders Doctor KINJAL 1.2.840.114 [id number] Univers 00:00:00 00:00:00 Only Unassigned, FROYLAN 350.1.13.10 ity of [place] [facility] 4.2.7.2.686 Alexander as [id number] [address] 2022-03-27 2022-03-27 Telephone Maria [facility] [id number] Univers 00:00:00 00:00:00 Fredy RIDLEY 350.1.13.10 ity of [facility] 4.2.[place] [id number] [place] [id number] [facility] 2022-03-18 2022-03-18 Orders Doctor KINJAL 1.2.840.114 [id number] Univers 00:00:00 00:00:00 Only Unassigned, FROYLAN 350.1.13.10 ity of [place] [facility] 4.2.7.2.686 [place] as [phone] [address] 2022-03-14 2022-03-14 Outpatient R MARIA R, [facility] [id number] Univers 14:20:00 14:53:24 FREDY lao o f [facility] 2022-03-14 2022-03-14 Office Maria [facility] 1.2.840.114 [id number] Univers 14:20:00 14:53:24 Visit Fredy RIDLEY 350.1.13.10 ity [place] [facility] [id number] La dical [facility] 2022-03-14 2022-03-14 Orders Doctor KINJAL 1.2.840.114 [id number] Univers 00:00:00 00:00:00 Only Unassigned, FROYLAN 350.1.13.[address] [place] [facility] 4.2.7.2.686 [place] as [phone] [address] 2022-02-18 2022-02-19 Emergency X ROSARIO, [facility] ERT [id number] Univers 21:31:00 00:44:00 DAQUAN ity of [facility] 2022-02-18 2022-02-19 Emergency [facility] 1.2.840.114 [id number] Univers 21:31:00 00:44:00 Daquan RID[place] 350.1.13.10 i ty [place] [id number] [address] 2021-12-26 2021-12-26 Emergency X LIZA, [facility] ERT [id number] Univers 21:57:00 23:21:00 LANDRY ity of [facility] 2021-12-26 2021-12-26 Emergency [facility] 1.2.840.114 [id number] Univers 21:57:00 23:21:00 Landry Sameer [place] 350.1.13.10 i ty [place] [id number] [address] 2021-06-22 2021-06-23 Emergency X MIGUEL ANGEL [facility] ERT [id number] Univers 22:34:00 01:41:00 FRED ity of [facility] 2021-06-22 2021-06-22 Orders Doctor KINJAL 1.2.840.114 [id number] Univers 00:00:00 00:00:00 Only Unassigned, FROYLAN 350.1.13.10 ity of [place] [facility] 4.2.7.2.686 [place] as [id number] [facility] 009 Branch 2020-09-12 2020-09-12 Patient [facility] 1.2.840.114 [id number] Univers 00:00:00 00:00:00 Outreach Homero PRIMARY 350.1.13.10 i ty of [facility] 4.2.7.2.[place] [id number] La dical 388 [place] 2020-01-16 2020-01-16 Emergency [facility] [id number] Univers 03:34:49 03:52:00 Melquiades Rid[place] 350.1.13.10 i ty of [place] 4.2.7.2.686 [facility] [place] [id number] [facility] 084 [place] 2020-01-16 2020-01-16 Emergency [facility] [id number] 03:34:49 03:52:00 Melquiades [place] 350.1.13.10 [place] 4.2.7.2.686 [place] [id number] [facility] 2020-01-16 2020-01-16 Telephone Rosio Odell 1.2.840.114 [id number] Univers 00:00:00 00:00:00 FROYLAN 350.1.13.10 it y of HOSPITAL 4.2.7.2.686 [place] as [phone] [facility] 019 Branch 2020-01-16 2020-01-16 Telephone Rosio Odell 1.2.840.114 [id number] 00:00:00 00:00:00 FROYLAN 350.1.13.10 HOSPITAL 4.2.7.2.686 [id number] 2020-01-05 2020-01-05 Office [facility] 1.2.840.114 [id number] Univers 13:13:21 13:28:21 Visit Irma [facility] 350.1.13.10 it y of Surgical 4.2.7.2.686 [place] as Specialti [id number] Me dical es [address] [facility] 2020-01-05 2020-01-05 [facility] 1.2.840.114 [id number] 13:13:21 13:28:21 Visit Irma Arboleda [facility] 350.1.13.10 Surgical 4.2.7.2.686 Specialti [id number] es [address] [place] 2020-01-05 2020-01-05 [facility] [id number] Univers 13:00:00 13:00:00 IRMA ity [facility] 2020-01-05 2020-01-05 Letter [facility] 1.2.840.114 [id number] Univers 00:00:00 00:00:00 (Out) Irma S Health 350.1.13.10 it y of Surgical 4.2.7.2.686 [place] as Specialti [id number] La dical es [address] [facility] 2020-01-05 2020-01-05 [facility] 1.2.840.114 [id number] 00:00:00 00:00:00 (Out) Irma [facility] 350.1.13.10 Surgical 4.2.7.2.686 Specialti [id number] es [address] [place] 2019-12-21 2019-12-21 Outpatient Dayanara SAPPHIRE [facility] [id number] Univers 13:15:00 13:15:00 IRMA lao [facility] 2019-12-15 2019-12-15 Outpatient [facility] [id number] Univers 13:32:43 23:59:00 LARISA ity [facility] 2019-12-15 2019-12-15 [facility] 1.2.840.114 [id number] Univers 13:32:00 23:59:00 Encounter Larisa [place] 350.1.13.10 ity [facility] 4.2.7.2.[place] [id number] [facility] 807 [place] 2019-12-15 2019-12-15 [facility] 1.2.840.114 [id number] Univers 13:56:23 14:11:23 Visit Irma Arboleda [facility] 350.1.13.10 it y of Surgical 4.2.7.2.686 [place] as Specialti [id number] Me dical es [address] [facility] 2019-12-15 2019-12-15 Telephone [facility] 1.2.840.114 [id number] Univers 00:00:00 00:00:00 Larisa L Health 350.1.13.10 it y of Surgical 4.2.7.2.686 [place] as Specialti [phone] Me dical es [address] [facility] 2019-12-15 2019-12-15 Letter [facility] 1.2.840.114 [id number] Univers 00:00:00 00:00:00 (Out) Irma S Health 350.1.13.10 it y of Surgical 4.2.7.2.686 [place] as Specialti [id number] La dical es [address] [facility] 2019-12-01 2019-12-01 [facility] 1.2.840.114 [id number] Univers 00:00:00 00:00:00 (Out) Irma Ar[facility]eda [facility] 350.1.13.10 it y of Surgical 4.2.7.2.686 [place] as Specialti [id number] La dical es [address] [facility] 2019-11-30 2019-11-30 Outpatient [facility] [id number] Univers 13:30:00 13:30:00 IRMA ity of [facility] 2019-11-30 2019-11-30 Telephone [facility] [id number] Univers 00:00:00 00:00:00 Irma Arboleda [facility] 350.1.13.10 it y of Surgical 4.2.7.2.686 [place] as Specialti [id number] La dical es [address] [facility] 2019-11-27 2019-11-28 Emergency Juan Carlos, TRAUMA 1.2.679.717 [id number] Univers 22:41:26 00:21:00 [facility] 350.1.13.10 i ty of [place] [id number] [address] 2019-11-27 2019-11-28 Emergency X JUAN CARLOS [facility] ERT [id number] Univers 22:41:26 00:21:00 MEHNAZCODY [facility]pe [facility] [facility] [place] Results Test Description Test Time Test Comments Results Result Comments Source POCT MOLECULAR FLU 2022-04-30 00:17:17 Test Item Value Reference Range Interpretation Comme nts POCT Molecular FluA (test code = 34663-4) Negative Negative POCT Molecular FluB (test code = 78249-8) Negative Negative Lab Interpretation (test code = 09151-8) Normal [id number] 00:17:17 Test Item Value Reference Range Interpretation Comments POCT Molecular FluA (test code = Negative Negative 79333-7) POCT Molecular FluB (test code = Negative Negative 00104-4) Lab Interpretation (test code = Normal 07771-6) [facility] [id number] 04:49:36 Test Item Value Reference Interpretation Comments Range TROPONIN I (test 0.002 ng/mL See_Comment [Automated code = 2332984268) message] The system which generated this result transmitted reference range : <=0.034. The reference range was not used to interpret this result as normal/abnormal . JURGEN (test code = Reference (Normal) JURGEN) Range (defined by the 99th percentile reference limit): <= 0.034 ng/mL Note: Cardiac troponin begins to rise 3-4 hours after the onset of ischemia. Repeat in 4-6 hours if the sample was drawn within 3-4 hours of the onset of the symptom and found normal. Diagnosis of myocardial injury is made with acute changes in cTn concentrations with at least one serial sample above the 99th percentile upper reference limit (URL), taken together with the patient's clinical presentation. Biotin has been reported to cause a negative bias, interpret results relative to patient's use of biotin. Lab Interpretation Normal (test code = 71815-7) [facility] 04:38:14 Test Item Value Reference Range Interpretation Comments MAGNESIUM (test code = 6370962971) 2.2 mg/dL 1.7-2.4 Lab Interpretation (test code = Normal 40696-7) [facility] (79275)2022-04-02 04:37:54 Test Item Value Reference Range Interpretation Comments NA (test code = 140 mmol/L 135-145 6481323946) K (test code = 4.4 mmol/L 3.5-5 4832742523) CL (test code = 104 mmol/L 98-108 6565170328) CO2 TOTAL (test code 27 mmol/L 23-31 = 7667497033) AGAP (test code = 2-16 4133790323) BUN (test code = 12 mg/dL 7-23 0255132365) GLUCOSE (test code = 80 mg/dL 70-110 9063826181) CREATININE (test code 1.11 mg/dL 0.6-1.25 = 1451550019) TOTAL BILI (test code 0.5 mg/dL 0.1-1.1 = 2164558477) CALCIUM (test code = 10.4 mg/dL 8.6-10.6 6953614720) T PROTEIN (test code 6.8 g/dL 6.3-8.2 = 5968876922) ALBUMIN (test code = 4.6 g/dL 3.5-5 1060232802) ALK PHOS (test code = 92 U/L 34-122 6743153448) ALTv (test code = 22 U/L 5-50 1742-6) AST(SGOT) (test code 20 U/L 13-40 = 1368449124) eGFR (test code = mL/min/1.73m2 7471642403) JURGEN (test code = JURGEN) Association of Glomerular Filtration Rate (GFR) and Staging of Kidney Disease* + + +- +| GFR (mL/min/1.73 m2) ?| With Kidney Damage ?| ?Without Kidney Damage+ ------+ ----+ ------+| ?>90 ?| ?Stage one ?| ? Normal ?+ -+ + -+| ?60-89 ?| ?Stage two ?| ? Decreased GFR ? + + +- +| ?30-59 ?| ?Stage three ?| ? Stage three ? + + +- +| ?15-29 ?| ?Stage four ? | ? Stage four ?+ -+ + -+| ?<15 (or dialysis) ? ?| ?Stage five ? | ? Stage five ?+ -+ + -+ *Each stage assumes the associated GFR level has been in effect for at least three months. ?Stages 1 to 5, with or without kidney disease, indicate chronic kidney disease. Notes: Determination of stages one and two (with eGFR >59mL/min/1.73 m2) requires estimation of kidney damage for at least three months as defined by structural or functional abnormalities of the kidney, manifested by either:Pathological abnormalities or Markers of kidney damage (including abnormalities in the composition of the blood or urine or abnormalities in imaging tests). [facility] WITH [id number] 03:52:29 Test Item Value Reference Range Interpretation Comments WBC (test code = See_Comment [Automated 4039-2) message] The sy stem which generated this result transmitted reference range : 4.20 - 10.70 10*3/?L. The reference range was not used to interpret this result as normal/abnormal . RBC (test code = See_Comment [Automated 149-8) message] The sy stem which generated this result transmitted reference range : 4.26 - 5.52 10*6/?L. The reference range was not used to interpret this result as normal/abnormal . HGB (test code = 15.9 g/dL 12.2-16.4 718-7) HCT (test code = 44.6 % 38.4-49.3 4544-3) MCV (test code = 84.6 fL 81.7-95.6 787-2) MCH (test code = 30.2 pg 26.1-32.7 785-6) MCHC (test code = 35.7 g/dL 31.2-35 H 786-4) RDW-SD (test code = 35.8 fL 38.5-51.6 L 84741-6) RDW-CV (test code = 11.9 % 12.1-15.4 L 788-0) PLT (test code = See_Comment [Automated 457-3) message] The sy stem which generated this result transmitted reference range : 150 - 328 10*3/ ?L. The reference r tamiko was not used to interpret this result as normal/abnormal . MPV (test code = 9.9 fL 9.8-13 85384-2) NRBC/100 WBC (test See_Comment [Automat ed code = 2361883807) message] The system which generated this result transmitted reference range : 0.0 - 10.0 /100 WBCs. The refer ence range was not u sed to interpret th is result as normal/abnormal . NRBC x10^3 (test code See_Comment [Auto mated = 3908671155) message] The s ystem which generated this result transmitted reference range : 10*3/?L. The reference range was not used to interpret this result as normal/abnormal . GRAN MAT (NEUT) % 58.5 % (test code = 770-8) IMM GRAN % (test code 0.20 % = 6778955326) LYMPH % (test code = 28.7 % 736-9) MONO % (test code = 7.0 % 5905-5) EOS % (test code = 5.2 % 713-8) BASO % (test code = 0.4 % 706-2) GRAN MAT x10^3(ANC) 5.56 10*3/uL 1.99-6.95 (test code = 8858218454) IMM GRAN x10^3 (test 0-0.06 code = 8687376943) LYMPH x10^3 (test code 2.72 10*3/uL 1.09-3.23 = 731-0) MONO x10^3 (test code 0.66 10*3/uL 0.36-1.02 = 742-7) EOS x10^3 (test code = 0.49 10*3/uL 0.06-0.53 711-2) BASO x10^3 (test code 0.04 10*3/uL 0.01-0.09 = 704-7) Lab Interpretation Abnormal (test code = 34823-3) [facility] VW [id number] 18:59:40HISTORY: Reinjured left since last x-ray study of 11/27/2019.. FINDINGS: AP, lateral, oblique views ofleft foot are obtained and comparedwith 11/27/2019 study. No acute fracture or dislocation detected. Firstmetatarsus varus and hallux valgus deformity noted without significantdegenerative changes in thefirst MTP joint. CONCLUSIONS: No acute fracture or dislocation in left foot. [facility], Radiant Results Inft User - 12/15/2019 2:00 PM CDTHISTORY: Reinjured left since last x- ray study of 11/27/2019..FINDINGS: AP, lateral, oblique views of left foot are obtained and comparedwith 11/27/2019 study. No acute fracture or dislocation detected. Firstmetatarsus varus and hallux valgus deformity noted without significantdegenerative changes in the first MTP joint.CONCLUSIONS: No acute fracture or dislocation in leftfoot.[facility]"
[2023-01-27 18:46] LABS: Absolute Lymphocytes (CBC) 2.5 K/uL (0.7-4.9); Hematocrit 48.2 % (39.6-49.0); Lymphocytes % 28.2 % (15.3-44.8); MCV 87.4 fL (80-100); MPV 8.2 fL (7.6-11.3); Platelets 230 thou/uL (152-406); RBC Red Blood Cell Count 5.51 M/uL (4.33-5.43)
[2023-01-27 19:05] LABS: BUN Blood Urea Nitrogen 10 mg/dL (7-18); Bicarbonate 27 mEq/L (21-32); Glomerular Filtration Rate 75 ml/min (=/>90); Glucose Level 89 mg/dL (74-106); Magnesium 2.4 mg/dL (1.6-2.4); Potassium 4.4 mEq/L (3.5-5.1); Sodium Level 139 mEq/L (136-145)
[2023-01-27 19:44] LABS: Urine Bacteria None Seen /HPF (<20); Urine RBC <5 /HPF (None Seen)
[2023-01-27 19:57] LABS: Troponin High Sensitivity < 3.0 pg/mL (<58.9)
[2023-01-27 20:00] LABS: Barbiturates NEGATIVE (NEGATIVE); Benzodiazepines NEGATIVE (NEGATIVE); Cocaine NEGATIVE (NEGATIVE); METHAMPHETAM NEGATIVE (NEGATIVE); Methadone NEGATIVE (NEGATIVE); Opiates NEGATIVE (NEGATIVE); Phencyclidine NEGATIVE (NEGATIVE); THC Cannibis NEGATIVE (NEGATIVE)
[2023-01-27] MEDS ORDERED: NA CHLORIDE 0.9% 1,000 ML ONE (20:33)
--- NOTE | 2023-01-27 21:24 | ER ---
[facility] Name: Tate Mcgill Age: 22 yrs Sex: Male : 2000 Arrival Date: 01/27/2023 Time: 17:11 Bed 20 Private MD: Diagnosis: Palpitations;Dizziness and giddiness;Chest pain, unspecified Presentation: 01/27 17:21 Chief complaint: Patient states: that he was at work today and started feeling dizzy cm10 and like his heart is racing. Pt states that this started at noon. Dizziness has resolved but pt states, "I still feel like my heart is racing.". Coronavirus screen: Vaccine status: Patient reports receiving the 2nd dose of the covid vaccine. Ebola Screen: Patient denies travel to an Ebola-affected area in the 21 days before illness onset. No symptoms or risks identified at this time. Initial Sepsis Screen: Does the patient meet any 2 criteria? No. Patient's initial sepsis screen is negative. Does the patient have a suspected source of infection? No. Patient's initial sepsis screen is negative. Risk Assessment: Do you want to hurt yourself or someone else? Patient reports no desire to harm self or others. Onset of symptoms was January 27, 2023. 17:21 Method Of Arrival: Ambulatory cm10 17:21 Acuity: DINORA 3 cm10 Historical: - Allergies: 17:24 Albuterol; "Makes my heart rate go high"; cm10 - PMHx: 17:24 None; cm10 - PSHx: 17:24 None; cm10 - Immunization history:: Adult Immunizations unknown. - Social history:: Smoking status: Reported history of juuling and/or vaping. Screenin:42 [facility] ED Fall Risk Assessment (Adult) History of falling in the last 3 months, ph including since admission No falls in past 3 months (0 pts) Confusion or Disorientation No (0 pts) Intoxicated or Sedated No (0 pts) Impaired Gait No (0 pts) Mobility Assist Device Used No (0 pt) Altered Elimination No (0 pt) Score/Fall Risk Level 0 - 2 = Low Risk Oriented to surroundings, Maintained a safe environment, Hourly rounding (assess needs \\T\\ fall precautionary measures) done. Abuse screen: Denies threats or abuse. Denies injuries from another. Nutritional screening: No deficits noted. Tuberculosis screening: No symptoms or risk factors identified. Assessment: 18:41 General: Appears in no apparent distress. comfortable, Behavior is calm, cooperative, ph appropriate for age. Pain: Complains of pain in chest. Neuro: Level of Consciousness is awake, alert, obeys commands, Oriented to person, place, time, situation, Reports dizziness. Cardiovascular: Reports chest pain, lightheadedness, palpitations, Capillary refill < 3 seconds in bilateral fingers Patient's skin is warm and dry. Rhythm is sinus rhythm Chest pain is described as mild, quality is squeezing. Respiratory: Airway is patent Respiratory effort is even, unlabored, Respiratory pattern is regular, symmetrical, Denies shortness of breath pain with respiration. GI: No signs and/or symptoms were reported involving the gastrointestinal system. Derm: Skin is pink, warm \\T\\ dry. 19:35 General: Appears comfortable, Behavior is calm, cooperative. Pain: Complains of pain in ha1 CHEST PALPITATIONS Pain does not radiate. Pain currently is 2 out of 10 on a pain scale. Neuro: Level of Consciousness is awake, alert, obeys commands, Oriented to person, place, time, situation. Cardiovascular: Patient's skin is warm and dry. Cardiovascular: Heart tones S1 S2 present Rhythm is sinus rhythm. Respiratory: Airway is patent Respiratory effort is even, unlabored, Respiratory pattern is regular, symmetrical. Musculoskeletal: Circulation, motion, and sensation intact. Range of motion:. 20:35 Reassessment: Patient and/or family updated on plan of care and expected duration. Pain ha1 level reassessed. Patient is alert, oriented x 3, equal unlabored respirations, skin warm/dry/pink. 21:39 Reassessment: Patient and/or family updated on plan of care and expected duration. Pain ha1 level reassessed. Patient is alert, oriented x 3, equal unlabored respirations, skin warm/dry/pink. Patient denies pain at this time. Patient states feeling better. Patient states symptoms have improved. Vital Signs: 17:21 BP 146 / 86; Pulse 80; Resp 18; Temp 99; Pulse Ox 100% ; Weight 124.74 kg; Height 5 ft. cm10 11 in. ; Pain 5/10; 18:59 BP 142 / 98; Pulse 65; Resp 18; Pulse Ox 97% on R/A; ph 19:35 BP 115 / 69; Pulse 63; Resp 18 S; Pulse Ox 100% on R/A; ha1 20:35 BP 126 / 87; Pulse 61; Resp 18 S; Pulse Ox 98% on R/A; ha1 21:39 BP 143 / 93; Pulse 75; Resp 18 S; Pulse Ox 100% ; ha1 17:21 Body Mass Index 38.35 (124.74 kg, 180.34 cm) cm10 17:21 Pain Scale: Adult cm10 Vitals: 18:59 Cardiac Rhythm Assessment Sinus rhythm. ph ED Course: 17:14 Patient arrived in ED. mr 17:22 Diogenes Varma PA is PHCP. cp 17:23 Maxx Haque DO is Attending Physician. cp 17:24 Triage completed. cm10 17:25 Arm band placed on Patient placed in waiting room. cm10 17:37 Pia Barbosa, AVIVA is Primary Nurse. ph 18:43 Patient has correct armband on for positive identification. Bed in low position. Call ph light in reach. Side rails up X 1. Client placed on continuous cardiac and pulse oximetry monitoring. NIBP monitoring applied. Door closed. Noise minimized. Warm blanket given. 18:43 Initial lab(s) drawn, by ky, sent to lab. Inserted saline lock: 22 gauge in right ph antecubital area, using aseptic technique. Blood collected. 18:44 No provider procedures requiring assistance completed. ph 21:19 XRAY Chest (1 view) In Process Unspecified. EDMS 21:39 IV discontinued, intact, bleeding controlled, No redness/swelling at site. Pressure ha1 dressing applied. Administered Medications: 18:41 Not Given (Other Intervention Used): Aspirin PO Chewable Tablet 324 mg PO once; 81 mg ph tablets x 4 20:50 Drug: NS 0.9% IV 1000 ml Route: IV; Rate: 1 bolus; Site: right antecubital; ha1 21:30 Follow up: Response: No adverse reaction; IV Status: Completed infusion; IV Intake: ha1 1000ml Medication: 18:43 VIS not applicable for this client. ph Intake: 21:30 IV: 1000ml; Total: 1000ml. ha1 Outcome: 21:24 Discharge ordered by MD. cp 21:38 Discharged to home ambulatory. ha1 21:38 Condition: stable 21:38 Discharge instructions given to patient, Instructed on discharge instructions, follow up and referral plans. Demonstrated understanding of instructions, follow-up care. 21:40 Patient left the ED. ha1 Signatures: Dispatcher [employer] Katy Young Patricia, RN RN Diogenes Cohn PA PA cp Ayala, Heidy, RN RN ha1 Ese Lopez RN RN cm10
--- NOTE | 2023-01-27 21:24 | EDPHYS ---
Physician Documentation [facility] Name: Tate Mcgill Age: 22 yrs Sex: Male : 2000 Arrival Date: 01/27/2023 Time: 17:11 Bed 20 Private MD: ED Physician Maxx Haque HPI: 01/27 17:33 This 22 yrs old Male presents to ER via Ambulatory with complaints of Dizziness, Fast cp heart rate. 17:33 The patient presents with a history of heart racing. cp 17:33 Context: The symptoms occur with light activity. Onset: The symptoms/episode cp began/occurred today. Duration: The patient or guardian reports a single episode, that is still ongoing, but improving. Associated signs and symptoms: Pertinent positives: chest pain, dizziness, Pertinent negatives: cough, fever, SOB, syncope, near-syncope, vomiting. Severity of symptoms: in the emergency department the symptoms have improved. Historical: - Allergies: 17:24 Albuterol; "Makes my heart rate go high"; cm10 - PMHx: 17:24 None; cm10 - PSHx: 17:24 None; cm10 - Immunization history:: Adult Immunizations unknown. - Social history:: Smoking status: Reported history of juuling and/or vaping. ROS: 17:40 Constitutional: Negative for body aches, chills, fever, poor PO intake. cp 17:40 Eyes: Negative for injury, pain, redness, and discharge. cp 17:40 ENT: Negative for drainage from ear(s), ear pain, sore throat, difficulty swallowing, difficulty handling secretions. 17:40 Cardiovascular: Positive for chest pain, palpitations, Negative for edema. 17:40 Respiratory: Positive for shortness of breath, Negative for cough, wheezing. 17:40 Abdomen/GI: Negative for abdominal pain, nausea, vomiting, and diarrhea. 17:40 Back: Negative for pain at rest, pain with movement. 17:40 Neuro: Positive for dizziness, Negative for altered mental status, syncope, near syncope, weakness. 17:40 All other systems are negative. Exam: 17:45 Constitutional: The patient appears in no acute distress, alert, awake, non-toxic, well cp developed, well nourished, obese. 17:45 Head/Face: Normocephalic, atraumatic. cp 17:45 Eyes: Periorbital structures: appear normal, Conjunctiva: normal, no exudate, no injection, Sclera: no appreciated abnormality, Lids and lashes: appear normal, bilaterally. 17:45 ENT: External ear(s): are unremarkable, Nose: is normal, Mouth: Lips: moist, Oral mucosa: pink and intact, moist, Posterior pharynx: is normal, airway is patent, no erythema, no exudate. 17:45 Neck: ROM/movement: is normal, is supple, without pain, no range of motions limitations. 17:45 Chest/axilla: Inspection: normal, Palpation: is normal, no crepitus, no tenderness. 17:45 Cardiovascular: Rate: normal, Rhythm: regular. 17:45 Respiratory: the patient does not display signs of respiratory distress, Respirations: normal, no use of accessory muscles, no retractions, labored breathing, is not present, Breath sounds: are clear throughout, no decreased breath sounds, no stridor, no wheezing. 17:45 Abdomen/GI: Inspection: abdomen appears normal, Palpation: abdomen is soft and non-tender, in all quadrants. 17:45 Neuro: Orientation: to person, place \\T\\ time. Mentation: is normal, Cerebellar function: is grossly normal, Motor: moves all fours, strength is normal, Sensation: is normal. 18:05 ECG was reviewed by the Attending Physician. cp Vital Signs: 17:21 BP 146 / 86; Pulse 80; Resp 18; Temp 99; Pulse Ox 100% ; Weight 124.74 kg; Height 5 ft. cm10 11 in. ; Pain 5/10; 18:59 BP 142 / 98; Pulse 65; Resp 18; Pulse Ox 97% on R/A; ph 19:35 BP 115 / 69; Pulse 63; Resp 18 S; Pulse Ox 100% on R/A; ha1 20:35 BP 126 / 87; Pulse 61; Resp 18 S; Pulse Ox 98% on R/A; ha1 21:39 BP 143 / 93; Pulse 75; Resp 18 S; Pulse Ox 100% ; ha1 17:21 Body Mass Index 38.35 (124.74 kg, 180.34 cm) cm10 17:21 Pain Scale: Adult cm10 MDM: 17:30 Patient medically screened. cp 21:23 Data reviewed: vital signs, nurses notes, lab test result(s), EKG, radiologic studies, cp plain films. 21:23 Differential diagnosis: arrythmia, dehydration, stress disorder, cardiac arrythmia. cp Counseling: I had a detailed discussion with the patient and/or guardian regarding: the historical points, exam findings, and any diagnostic results supporting the discharge/admit diagnosis, lab results, radiology results, the need for outpatient follow up, a supervisory aide, to return to the emergency department if symptoms worsen or persist or if there are any questions or concerns that arise at home. 08 17:31 Order name: UDS; Complete Time: 20:02 cp 08/ 17:31 Order name: Urine Microscopic Only; Complete Time: 20:02 cp 01/27 17:56 Order name: Basic Metabolic Panel; Complete Time: 20:02 cp 01/27 20:02 Interpretation: Normal except: CL 108; CRE 1.37; GFR 75. 08/ 17:56 Order name: CBC with Diff; Complete Time: 20:02 cp 08 20:02 Interpretation: Normal except: RBC 5.51. cp 08 17:56 Order name: D-Dimer; Complete Time: 20:02 cp 08/ 17:56 Order name: Magnesium; Complete Time: 20:02 cp 01/27 17:56 Order name: Troponin HS; Complete Time: 20:02 cp 07 20:03 Interpretation: Reviewed. 08 20:57 Order name: XRAY Chest (1 view) cp 08/ 17:30 Order name: EKG; Complete Time: 17:31 cp 01/27 17:30 Order name: EKG - Nurse/Tech; Complete Time: 17:59 cp 08 17:56 Order name: Cardiac monitoring; Complete Time: 17:59 cp 01/27 17:56 Order name: IV Saline Lock; Complete Time: 18:41 cp 01/27 17:56 Order name: Labs collected and sent; Complete Time: 18:41 cp 01/27 17:56 Order name: O2 Per Protocol; Complete Time: 17:59 cp 08 17:56 Order name: O2 Sat Monitoring; Complete Time: 17:59 cp EC:05 Rate is 80 beats/min. Rhythm is regular. CA interval is normal. QRS interval is normal. cp QT interval is normal. T waves are Inverted in lead aVR. Interpreted by me. Reviewed by me. Administered Medications: 18:41 Not Given (Other Intervention Used): Aspirin PO Chewable Tablet 324 mg PO once; 81 mg ph tablets x 4 20:50 Drug: NS 0.9% IV 1000 ml Route: IV; Rate: 1 bolus; Site: right antecubital; ha1 21:30 Follow up: Response: No adverse reaction; IV Status: Completed infusion; IV Intake: ha1 1000ml Disposition: 19:58 Co-signature as Attending Physician, Maxx Haque DO I was immediately available on-site ms3 in the Emergency Department for consultation in the care of the patient. Disposition Summary: 01/27/23 21:24 Discharge Ordered Location: Home cp Problem: new cp Symptoms: have improved cp Condition: Stable cp Diagnosis - Palpitations cp - Dizziness and giddiness cp - Chest pain, unspecified cp Followup: cp - With: Private Physician - When: 2 - 3 days - Reason: Recheck today's complaints Discharge Instructions: - Discharge Summary Sheet cp - Nonspecific Chest Pain, Adult cp - Dizziness cp - Palpitations cp - Aspirin and Your Heart cp Forms: - Medication Reconciliation Form cp - Thank You Letter cp - Antibiotic Education cp - Prescription Opioid Use cp - Patient Portal Instructions cp Signatures: Dispatcher [employer] EDMS Diogenes Varma PA PA cp Maxx Haque DO DO ms3 Marcia Mares RN RN ha1 Ese Lopez RN RN cm10 Pia Barbosa RN ph
--- NOTE | 2023-01-27 21:50 | RAD REPORT ---
EXAM DESCRIPTION: Dolores Single View01/27/2023 9:18 pm CLINICAL HISTORY: Chest pain COMPARISON: none FINDINGS: The lungs appear clear of acute infiltrate. The heart is normal size IMPRESSION: No acute abnormalities displayed
[2023-01-27 22:00] VITALS: TEMP 99
[2023-01-27 22:18] VITALS: BP 143/93; O2SAT 100
--- NOTE | 2023-01-29 18:14 | EKG ---
Test Date: 2023-01-27 Test Time: 17:56:13 [employer] Delivery Driver: PH MEASUREMENT RESULTS: Intervals: Rate: 80 MN: 136 QRSD: 94 QT: 348 QTc: 401 Bow: P: 35 MN: 136 QRS: 51 T: 24 INTERPRETIVE STATEMENTS: Normal sinus rhythm Normal ECG No previous ECG available for comparison Electronically Signed On 01-29-23 18:11:46 CDT by Gilbert Stanley
== END 2023-01-27 21:40 | disposition home or self-care (01) ==
LOC: ER 17:11
DX: R00.2 Palpitations (principal); R42 Dizziness and giddiness; Z88.8 Allergy status to other drugs, medicaments and biological substances
CPT/HCPCS: 93005; 85025; 80048; 36415; 83735; 85379; 81015; 84484; 80307; 71045; 96360; 99284; J7030

== ENCOUNTER → 2023-06-18 | Emergency (ER) | payer BC ==
--- OUTSIDE RECORDS SUMMARY | 2023-06-18 16:48 | XMS REPORT | Continuity of Care Document ---
Author Name Unknown Address [address] [facility] [address] [place] [address] [facility] thconnect Address [address] [facility] [address] [place] [address] Care Team Providers Care Mortgage Collector Name Role Phone Pari Lopez NP Primary Care Physician + [phone] TYLOR BARRETT Attending Clinician UnavailTYLOR Hernandez Attending Clinician UnavailFredy Joiner MD Attending Clinician [phone] FREDY HECK Attending Clinician Unavailable Tylor Barrett MD Attending Clinician [phone] KINJAL CANO Attending Clinician Unavailable Kinjal Cano PA-C Attending Clinician [phone] Unknown, Attending Attending Clinician UnavailANKUSH Arroyo Attending Clinician Unavailable Ankush Hanson DO Attending Clinician [phone] [facility] Attending Clinician Unavailelliot arthur Doctor Unassigned, [place] Attending Clinician U DAQUAN Carreon Attending Clinician Unavailable Daquan Trujillo Attending Clinician [phone] LANDRY DE JESUS Attending Clinician Unavailable [place] Attending Clinician [phone] FRED MICHELLE Attending Clinician Unavailable Homero Ward DO Attending Clinician Melquiades Kemp MD Attending Clinician [phone] Rosio Odell RN Attending Clinician Unavailable Irma Salcido Attending Clinician [phone] IRMA LEARY Attending Clinician Unavailable LARISA LUND Attending Clinician UnavailLarisa Muñoz MD Attending Clinician [phone] Cristi Rose Attending Clinician CRISTI RANGEL Attending Clinician Unavaila ble MARIA R CHRISTINEJOSE GUADALUPE Admitting Clinician Unavailable DAQUAN PONCE Admitting Clinician Unavailable LANDRY DE JESUS Admitting Clinician Unavailable FRED MICHELLE Admitting Clinician Unavailable LARISA LUND Admitting Clinician UnavailCRISTI Dan Admitting Clinician Unavaila jerson Payers Payer Name Policy Type Policy Number Effective Date Expirati on Date Source [employer] [place] - OUT OF STATE [id number] 2014 00:00:00 YAZMIN [facility] [id number] 2017 00:00:00 CIGNA II [id number] 2020 00:00:00 Problems Condition Name Condition Details Condition Category Status Onset Date Resolution Date Last Treatment Date Treating Clinician Comments Source Nicotine dependence , unspecifie d, uncomplica dayday Nicotine dependence , unspecifie d, uncomplica dayday Disease Active - 00:00: 00 [facility] COVID-19 COVID-19 Disease Active 2020-06 00:00: 00 [facility] Exposure to Severe Acute Respirator y Syndrome Coronaviru s 2 (SARS-Cov- 2) Exposure to Severe Acute Respirator y Syndrome Coronaviru s 2 (SARS-Cov- 2) Disease Active 2020-06 2 00:00: 00 [facility] Screening for other specific viral and chlamydial diseases Screening for other specific viral and chlamydial diseases Disease Active 2020-06 0-18 00:00: 00 [facility] Chronic fatigue syndrome Chronic fatigue syndrome Disease Active 8-13 00:00: 00 [facility] Allergic rhinitis Allergic rhinitis Disease Active 8-06 00:00: 00 [facility] Anxiety Anxiety Disease Active 8-06 00:00: 00 [facility] Attention- deficit hyperactiv ity disorder, unspecifie d type Attention- deficit hyperactiv ity disorder, unspecifie d type Disease Active 01-26 00:00: 00 [facility] Depressive disorder Depressive disorder Disease Active 01-26 00:00: 00 [facility] Gastroesop hageal reflux disease Gastroesop hageal reflux disease Disease Active 01-26 00:00: 00 [facility] Supraventr icular tachycardi a Supraventr icular tachycardi a Disease Active 01-26 00:00: 00 [facility] Acute postoperat lefty abdominal pain Acute postoperat lefty abdominal pain Disease Active 11-21 00:00: 00 [facility] Allergies, Adverse Reactions, Alerts Allergy Name Allergy Type Status Severity Reaction(s) Onset Date Inactive Date Treating Clinician Comments Source NO KNOWN ALLERGIE S Drug Class Active [facility] Social History Social Habit Start Date Stop Date Quantity Comments Source History of tobacco use Smokes tobacco daily [facility] to SARS-CoV-2 (event) 2022-04-23 00:00:00 2022-05-03 08:58:[address] [facility] History of Social function 2022-03-14 00:00:00 2022-03-14 00:00:00 [facility] Alcohol intake 2020-01-05 00:00:00 2020-01-05 00:00:00 Current non-drinker of alcohol (finding) [facility] Tobacco use and exposure 2019-12-15 00:00:00 2019-12-15 00:00:00 Smokeless tobacco non-user [facility] Tobacco Comment 2019-12-15 00:00:00 2019-12-15 00:00:[address] [facility] Sex Assigned At 2000 00:00:00 2000 00:00:00 [facility] Smoking Status Start Date Stop Date Source Smokes tobacco daily 2019-12-15 00:00:00 [facility] Never smoker [facility] Medications Ordered Medication Name Filled Medication Name Start Date Stop Date Current Medication? Ordering Clinician Indication Dosage Frequency Signature (SIG) Comments Components Source amoxicillin -clavulanat e (AUGMENTIN) 875-125 mg per tablet 2021-06 00:00: 00 05-07 05:59 :00 No [id number] 1{tbl} Take 1 tablet by mouth in the morning and 1 tablet in the evening. Do all this for 7 days. [facility] amoxicillin -clavulanat e (AUGMENTIN) 875-125 mg per tablet 2021-06 00:00: 00 05-07 05:59 :00 No [id number] 1{tbl} Take 1 tablet by mouth in the morning and 1 tablet in the evening. Do all this for 7 days. [facility] amoxicillin -clavulanat e (AUGMENTIN) 875-125 mg per tablet 2021-06 00:00: 00 05-07 05:59 :00 No [id number] 1{tbl} Take 1 tablet by mouth in the morning and 1 tablet in the evening. Do all this for 7 days. [facility] amoxicillin -clavulanat e (AUGMENTIN) 875-125 mg per tablet 2021-06 00:00: 00 05-07 05:59 :00 No [id number] 1{tbl} Take 1 tablet by mouth in the morning and 1 tablet in the evening. Do all this for 7 days. [facility] NaCl 0.9% (NS) bolus infusion 1,000 mL 02-19 03:30: 00 02-19 04:00 :00 No 1000mL at 999 mL/hr, 1,000 mL, IV Infusion, ONCE, 1 dose, On Fri02/18/22 at 2230, JOSE [facility] cyclobenzap rine (FLEXERIL) tablet 10 mg 12-27 04:15: 00 12-27 03:12 :00 No 10mg 10 mg, Oral, ONCE, 1 dose, On Fri12/26/21 at 2315, Routine [facility] ketorolac (TORADOL) injection 30 mg 12-27 03:15: 00 12-27 03:12 :00 No 30mg 30 mg, Intramuscu lar, ONCE, 1 dose, On Fri12/26/21 at 2215, JOSE [facility] ibuprofen 800 mg tablet 12-26 00:00: 00 Yes [id number] 800mg Take 1 tablet by mouth every 8 (eight) hours as needed for Pain (scale 4-6). [facility] methocarbam oL (ROBAXIN-75 0) 750 mg tablet 12-26 00:00: 00 Yes [id number] 750mg Take 1 tablet by mouth 4 (four) times daily as needed for Pain (scale 7-10). [facility] ibuprofen 800 mg tablet 12-26 00:00: 00 Yes [id number] 800mg Take 1 tablet by mouth every 8 (eight) hours as needed for Pain (scale 4-6). [facility] methocarbam oL (ROBAXIN-75 0) 750 mg tablet 12-26 00:00: 00 Yes [id number] 750mg Take 1 tablet by mouth 4 (four) times daily as needed for Pain (scale 7-10). [facility] ibuprofen 800 mg tablet 12-26 00:00: 00 Yes [id number] 800mg Take 1 tablet by mouth every 8 (eight) hours as needed for Pain (scale 4-6). [facility] methocarbam oL (ROBAXIN-75 0) 750 mg tablet 12-26 00:00: 00 Yes [id number] 750mg Take 1 tablet by mouth 4 (four) times daily as needed for Pain (scale 7-10). [facility] ibuprofen 800 mg tablet 12-26 00:00: 00 Yes [id number] 800mg Take 1 tablet by mouth every 8 (eight) hours as needed for Pain (scale 4-6). [facility] methocarbam oL (ROBAXIN-75 0) 750 mg tablet 12-26 00:00: 00 Yes [id number] 750mg Take 1 tablet by mouth 4 (four) times daily as needed for Pain (scale 7-10). [facility] ibuprofen 800 mg tablet 12-26 00:00: 00 Yes [id number] 800mg Take 1 tablet by mouth every 8 (eight) hours as needed for Pain (scale 4-6). [facility] methocarbam oL (ROBAXIN-75 0) 750 mg tablet 12-26 00:00: 00 Yes [id number] 750mg Take 1 tablet by mouth 4 (four) times daily as needed for Pain (scale 7-10). [facility] ibuprofen 800 mg tablet 12-26 00:00: 00 Yes [id number] 800mg Take 1 tablet by mouth every 8 (eight) hours as needed for Pain (scale 4-6). [facility] methocarbam oL (ROBAXIN-75 0) 750 mg tablet 12-26 00:00: 00 Yes [id number] 750mg Take 1 tablet by mouth 4 (four) times daily as needed for Pain (scale 7-10). [facility] ibuprofen 800 mg tablet 12-26 00:00: 00 Yes [id number] 800mg Take 1 tablet by mouth every 8 (eight) hours as needed for Pain (scale 4-6). [facility] methocarbam oL (ROBAXIN-75 0) 750 mg tablet 12-26 00:00: 00 Yes [id number] 750mg Take 1 tablet by mouth 4 (four) times daily as needed for Pain (scale 7-10). [facility] ibuprofen 800 mg tablet 12-26 00:00: 00 Yes [id number] 800mg Take 1 tablet by mouth every 8 (eight) hours as needed for Pain (scale 4-6). [facility] methocarbam oL (ROBAXIN-75 0) 750 mg tablet 12-26 00:00: 00 Yes [id number] 750mg Take 1 tablet by mouth 4 (four) times daily as needed for Pain (scale 7-10). [facility] ibuprofen 800 mg tablet 12-26 00:00: 00 Yes [id number] 800mg Take 1 tablet by mouth every 8 (eight) hours as needed for Pain (scale 4-6). [facility] methocarbam oL (ROBAXIN-75 0) 750 mg tablet 12-26 00:00: 00 Yes [id number] 750mg Take 1 tablet by mouth 4 (four) times daily as needed for Pain (scale 7-10). [facility] ibuprofen 800 mg tablet 12-26 00:00: 00 Yes [id number] 800mg Take 1 tablet by mouth every 8 (eight) hours as needed for Pain (scale 4-6). [facility] methocarbam oL (ROBAXIN-75 0) 750 mg tablet 12-26 00:00: 00 Yes [id number] 750mg Take 1 tablet by mouth 4 (four) times daily as needed for Pain (scale 7-10). [facility] ibuprofen 800 mg tablet 12-26 00:00: 00 Yes [id number] 800mg Take 1 tablet by mouth every 8 (eight) hours as needed for Pain (scale 4-6). [facility] methocarbam oL (ROBAXIN-75 0) 750 mg tablet 12-26 00:00: 00 Yes [id number] 750mg Take 1 tablet by mouth 4 (four) times daily as needed for Pain (scale 7-10). [facility] ibuprofen 800 mg tablet 12-26 00:00: 00 Yes [id number] 800mg Take 1 tablet by mouth every 8 (eight) hours as needed for Pain (scale 4-6). [facility] methocarbam oL (ROBAXIN-75 0) 750 mg tablet 12-26 00:00: 00 Yes [id number] 750mg Take 1 tablet by mouth 4 (four) times daily as needed for Pain (scale 7-10). [facility] ibuprofen 800 mg tablet 12-26 00:00: 00 Yes [id number] 800mg Take 1 tablet by mouth every 8 (eight) hours as needed for Pain (scale 4-6). [facility] methocarbam oL (ROBAXIN-75 0) 750 mg tablet 12-26 00:00: 00 Yes [id number] 750mg Take 1 tablet by mouth 4 (four) times daily as needed for Pain (scale 7-10). [facility] ibuprofen 800 mg tablet 12-26 00:00: 00 Yes [id number] 800mg Take 1 tablet by mouth every 8 (eight) hours as needed for Pain (scale 4-6). [facility] methocarbam oL (ROBAXIN-75 0) 750 mg tablet 12-26 00:00: 00 Yes [id number] 750mg Take 1 tablet by mouth 4 (four) times daily as needed for Pain (scale 7-10). [facility] ibuprofen 800 mg tablet 12-26 00:00: 00 Yes [id number] 800mg Take 1 tablet by mouth every 8 (eight) hours as needed for Pain (scale 4-6). [facility] methocarbam oL (ROBAXIN-75 0) 750 mg tablet 12-26 00:00: 00 Yes [id number] 750mg Take 1 tablet by mouth 4 (four) times daily as needed for Pain (scale 7-10). [facility] ibuprofen 800 mg tablet 12-26 00:00: 00 Yes [id number] 800mg Take 1 tablet by mouth every 8 (eight) hours as needed for Pain (scale 4-6). [facility] methocarbam oL (ROBAXIN-75 0) 750 mg tablet 12-26 00:00: 00 Yes [id number] 750mg Take 1 tablet by mouth 4 (four) times daily as needed for Pain (scale 7-10). [facility] ibuprofen 800 mg tablet 12-26 00:00: 00 Yes [id number] 800mg Take 1 tablet by mouth every 8 (eight) hours as needed for Pain (scale 4-6). [facility] methocarbam oL (ROBAXIN-75 0) 750 mg tablet 12-26 00:00: 00 Yes [id number] 750mg Take 1 tablet by mouth 4 (four) times daily as needed for Pain (scale 7-10). [facility] ibuprofen 800 mg tablet 12-26 00:00: 00 Yes [id number] 800mg Take 1 tablet by mouth every 8 (eight) hours as needed for Pain (scale 4-6). [facility] methocarbam oL (ROBAXIN-75 0) 750 mg tablet 12-26 00:00: 00 Yes [id number] 750mg Take 1 tablet by mouth 4 (four) times daily as needed for Pain (scale 7-10). [facility] ibuprofen 800 mg tablet 12-26 00:00: 00 Yes [id number] 800mg Take 1 tablet by mouth every 8 (eight) hours as needed for Pain (scale 4-6). [facility] methocarbam oL (ROBAXIN-75 0) 750 mg tablet 12-26 00:00: 00 Yes [id number] 750mg Take 1 tablet by mouth 4 (four) times daily as needed for Pain (scale 7-10). [facility] ibuprofen 800 mg tablet 12-26 00:00: 00 Yes [id number] 800mg Take 1 tablet by mouth every 8 (eight) hours as needed for Pain (scale 4-6). [facility] methocarbam oL (ROBAXIN-75 0) 750 mg tablet 12-26 00:00: 00 Yes [id number] 750mg Take 1 tablet by mouth 4 (four) times daily as needed for Pain (scale 7-10). [facility] ibuprofen 800 mg tablet 12-26 00:00: 00 Yes [id number] 800mg Take 1 tablet by mouth every 8 (eight) hours as needed for Pain (scale 4-6). [facility] methocarbam oL (ROBAXIN-75 0) 750 mg tablet 12-26 00:00: 00 Yes [id number] 750mg Take 1 tablet by mouth 4 (four) times daily as needed for Pain (scale 7-10). [facility] acetaminoph en-codeine (TYLENOL #3) 300-30 mg tablet 1 tablet 11-27 05:00: 00 11-27 04:14 :00 No 1{tbl} 1 tablet, Oral, ONCE, 1 dose, 11/28/19 at 0000, [facility] acetaminoph en-codeine (TYLENOL #3) 300-30 mg tablet 1 tablet 11-27 05:00: 00 11-27 04:14 :00 No 1{tbl} 1 tablet, Oral, ONCE, 1 dose, 11/28/19 at 0000, [facility] acetaminoph en-codeine 300-30 mg tablet 11-27 00:00: 00 Yes [id number] 1{tbl} Take 1 tablet by mouth every 6 (six) hours as needed for Pain (scale 4-6). [facility] acetaminoph en-codeine 300-30 mg tablet 11-27 00:00: 00 Yes [id number] 1{tbl} Take 1 tablet by mouth every 6 (six) hours as needed for Pain (scale 4-6). [facility] acetaminoph en-codeine 300-30 mg tablet 11-27 00:00: 00 Yes [id number] 1{tbl} Take 1 tablet by mouth every 6 (six) hours as needed for Pain (scale 4-6). [facility] acetaminoph en-codeine 300-30 mg tablet 11-27 00:00: 00 Yes [id number] 1{tbl} Take 1 tablet by mouth every 6 (six) hours as needed for Pain (scale 4-6). [facility] acetaminoph en-codeine 300-30 mg tablet 11-27 00:00: 00 Yes [id number] 1{tbl} Take 1 tablet by mouth every 6 (six) hours as needed for Pain (scale 4-6). [facility] acetaminoph en-codeine 300-30 mg tablet 11-27 00:00: 00 Yes [id number] 1{tbl} Take 1 tablet by mouth every 6 (six) hours as needed for Pain (scale 4-6). [facility] acetaminoph en-codeine 300-30 mg tablet 11-27 00:00: 00 Yes [id number] 1{tbl} Take 1 tablet by mouth every 6 (six) hours as needed for Pain (scale 4-6). [facility] acetaminoph en-codeine 300-30 mg tablet 11-27 00:00: 00 Yes [id number] 1{tbl} Take 1 tablet by mouth every 6 (six) hours as needed for Pain (scale 4-6). [facility] acetaminoph en-codeine 300-30 mg tablet 11-27 00:00: 00 Yes [id number] 1{tbl} Take 1 tablet by mouth every 6 (six) hours as needed for Pain (scale 4-6). [facility] acetaminoph en-codeine 300-30 mg tablet 11-27 00:00: 00 Yes [id number] 1{tbl} Take 1 tablet by mouth every 6 (six) hours as needed for Pain (scale 4-6). [facility] acetaminoph en-codeine 300-30 mg tablet 11-27 00:00: 00 Yes [id number] 1{tbl} Take 1 tablet by mouth every 6 (six) hours as needed for Pain (scale 4-6). [facility] acetaminoph en-codeine 300-30 mg tablet 11-27 00:00: 00 Yes [id number] 1{tbl} Take 1 tablet by mouth every 6 (six) hours as needed for Pain (scale 4-6). [facility] acetaminoph en-codeine 300-30 mg tablet 11-27 00:00: 00 Yes [id number] 1{tbl} Take 1 tablet by mouth every 6 (six) hours as needed for Pain (scale 4-6). [facility] acetaminoph en-codeine 300-30 mg tablet 11-27 00:00: 00 Yes [id number] 1{tbl} Take 1 tablet by mouth every 6 (six) hours as needed for Pain (scale 4-6). [facility] acetaminoph en-codeine 300-30 mg tablet 11-27 00:00: 00 Yes [id number] 1{tbl} Take 1 tablet by mouth every 6 (six) hours as needed for Pain (scale 4-6). [facility] acetaminoph en-codeine 300-30 mg tablet 11-27 00:00: 00 Yes [id number] 1{tbl} Take 1 tablet by mouth every 6 (six) hours as needed for Pain (scale 4-6). [facility] acetaminoph en-codeine 300-30 mg tablet 11-27 00:00: 00 Yes [id number] 1{tbl} Take 1 tablet by mouth every 6 (six) hours as needed for Pain (scale 4-6). [facility] acetaminoph en-codeine 300-30 mg tablet 11-27 00:00: 00 Yes [id number] 1{tbl} Take 1 tablet by mouth every 6 (six) hours as needed for Pain (scale 4-6). [facility] acetaminoph en-codeine 300-30 mg tablet 11-27 00:00: 00 Yes [id number] 1{tbl} Take 1 tablet by mouth every 6 (six) hours as needed for Pain (scale 4-6). [facility] acetaminoph en-codeine 300-30 mg tablet 11-27 00:00: 00 Yes [id number] 1{tbl} Take 1 tablet by mouth every 6 (six) hours as needed for Pain (scale 4-6). [facility] acetaminoph en-codeine 300-30 mg tablet 11-27 00:00: 00 Yes [id number] 1{tbl} Take 1 tablet by mouth every 6 (six) hours as needed for Pain (scale 4-6). [facility] acetaminoph en-codeine 300-30 mg tablet 11-27 00:00: 00 Yes [id number] 1{tbl} Take 1 tablet by mouth every 6 (six) hours as needed for Pain (scale 4-6). [facility] acetaminoph en-codeine 300-30 mg tablet 11-27 00:00: 00 Yes [id number] 1{tbl} Take 1 tablet by mouth every 6 (six) hours as needed for Pain (scale 4-6). [facility] acetaminoph en-codeine 300-30 mg tablet 11-27 00:00: 00 Yes [id number] 1{tbl} Take 1 tablet by mouth every 6 (six) hours as needed for Pain (scale 4-6). [facility] acetaminoph en-codeine 300-30 mg tablet 11-27 00:00: 00 Yes [id number] 1{tbl} Take 1 tablet by mouth every 6 (six) hours as needed for Pain (scale 4-6). [facility] acetaminoph en-codeine 300-30 mg tablet 11-27 00:00: 00 Yes [id number] 1{tbl} Take 1 tablet by mouth every 6 (six) hours as needed for Pain (scale 4-6). [facility] acetaminoph en-codeine 300-30 mg tablet 11-27 00:00: 00 Yes [id number] 1{tbl} Take 1 tablet by mouth every 6 (six) hours as needed for Pain (scale 4-6). [facility] acetaminoph en-codeine 300-30 mg tablet 11-27 00:00: 00 Yes [id number] 1{tbl} Take 1 tablet by mouth every 6 (six) hours as needed for Pain (scale 4-6). [facility] acetaminoph en-codeine 300-30 mg tablet 11-27 00:00: 00 Yes [id number] 1{tbl} Take 1 tablet by mouth every 6 (six) hours as needed for Pain (scale 4-6). [facility] acetaminoph en-codeine 300-30 mg tablet 11-27 00:00: 00 Yes [id number] 1{tbl} Take 1 tablet by mouth every 6 (six) hours as needed for Pain (scale 4-6). [facility] acetaminoph en-codeine 300-30 mg tablet 11-27 00:00: 00 Yes [id number] 1{tbl} Take 1 tablet by mouth every 6 (six) hours as needed for Pain (scale 4-6). [facility] acetaminoph en-codeine 300-30 mg tablet 11-27 00:00: 00 Yes [id number] 1{tbl} Take 1 tablet by mouth every 6 (six) hours as needed for Pain (scale 4-6). [facility] acetaminoph en-codeine 300-30 mg tablet 11-27 00:00: 00 Yes [id number] 1{tbl} Take 1 tablet by mouth every 6 (six) hours as needed for Pain (scale 4-6). [facility] acetaminoph en-codeine 300-30 mg tablet 11-27 00:00: 00 Yes [id number] 1{tbl} Take 1 tablet by mouth every 6 (six) hours as needed for Pain (scale 4-6). [facility] acetaminoph en-codeine 300-30 mg tablet 11-27 00:00: 00 Yes [id number] 1{tbl} Take 1 tablet by mouth every 6 (six) hours as needed for Pain (scale 4-6). [facility] acetaminoph en-codeine 300-30 mg tablet 11-27 00:00: 00 Yes [id number] 1{tbl} Take 1 tablet by mouth every 6 (six) hours as needed for Pain (scale 4-6). [facility] acetaminoph en-codeine 300-30 mg tablet 11-27 00:00: 00 Yes [id number] 1{tbl} Take 1 tablet by mouth every 6 (six) hours as needed for Pain (scale 4-6). [facility] acetaminoph en-codeine 300-30 mg tablet 11-27 00:00: 00 Yes [id number] 1{tbl} Take 1 tablet by mouth every 6 (six) hours as needed for Pain (scale 4-6). [facility] acetaminoph en-codeine 300-30 mg tablet 11-27 00:00: 00 11-27 00:00 :00 No [id number] 1{tbl} Take 1 tablet by mouth every 6 (six) hours as needed for Pain (scale 4-6). [facility] lisdexamfet amine 50 mg capsule 11-22 14:57: 11 Yes 50mg Take 50 mg by mouth as needed. [facility] lisdexamfet amine 50 mg capsule 11-22 14:57: 11 Yes 50mg Take 50 mg by mouth as needed. [facility] lisdexamfet amine 50 mg capsule 11-22 14:57: 11 Yes 50mg Take 50 mg by mouth as needed. [facility] lisdexamfet amine 50 mg capsule 11-22 14:57: 11 Yes 50mg Take 50 mg by mouth as needed. [facility] lisdexamfet amine 50 mg capsule 11-22 14:57: 11 Yes 50mg Take 50 mg by mouth as needed. [facility] lisdexamfet amine 50 mg capsule 11-22 14:57: 11 Yes 50mg Take 50 mg by mouth as needed. [facility] lisdexamfet amine 50 mg capsule 11-22 14:57: 11 Yes 50mg Take 50 mg by mouth as needed. [facility] lisdexamfet amine 50 mg capsule 11-22 14:57: 11 Yes 50mg Take 50 mg by mouth as needed. [facility] lisdexamfet amine 50 mg capsule 11-22 14:57: 11 Yes 50mg Take 50 mg by mouth as needed. [facility] lisdexamfet amine 50 mg capsule 11-22 14:57: 11 Yes 50mg Take 50 mg by mouth as needed. [facility] lisdexamfet amine 50 mg capsule 11-22 14:57: 11 Yes 50mg Take 50 mg by mouth as needed. [facility] lisdexamfet amine 50 mg capsule 11-22 14:57: 11 Yes 50mg Take 50 mg by mouth as needed. [facility] lisdexamfet amine 50 mg capsule 11-22 14:57: 11 Yes 50mg Take 50 mg by mouth as needed. [facility] mg capsule 11-22 14:57: 11 Yes 50mg Take 50 mg by mouth as needed. [facility] lisdexamfet amine 50 mg capsule 11-22 14:57: 11 Yes 50mg Take 50 mg by mouth as needed. [facility] lisdexamfet amine 50 mg capsule 11-22 09:57: 11 Yes 50mg Take 50 mg by mouth as needed. [facility] mg capsule 11-22 09:57: 11 Yes 50mg Take 50 mg by mouth as needed. [facility] lisdexamfet amine 50 mg capsule 11-22 09:57: 11 Yes 50mg Take 50 mg by mouth as needed. [facility] mg capsule 11-22 09:57: 11 Yes 50mg Take 50 mg by mouth as needed. [facility] lisdexamfet amine 50 mg capsule 11-22 09:57: 11 Yes 50mg Take 50 mg by mouth as needed. [facility] lisdexamfet amine 50 mg capsule 11-22 09:57: 11 Yes 50mg Take 50 mg by mouth as needed. [facility] lisdexamfet amine 50 mg capsule 11-22 09:57: 11 Yes 50mg Take 50 mg by mouth as needed. [facility] lisdexamfet amine 50 mg capsule 11-22 09:57: 11 Yes 50mg Take 50 mg by mouth as needed. [facility] mg capsule 11-22 09:57: 11 Yes 50mg Take 50 mg by mouth as needed. [facility] lisdexamfet amine 50 mg capsule 11-22 09:57: 11 Yes 50mg Take 50 mg by mouth as needed. [facility] lisdexamfet amine 50 mg capsule 11-22 09:57: 11 Yes 50mg Take 50 mg by mouth as needed. [facility] lisdexamfet amine 50 mg capsule 11-22 09:57: 11 Yes 50mg Take 50 mg by mouth as needed. [facility] lisdexamfet amine 50 mg capsule 11-22 09:57: 11 Yes 50mg Take 50 mg by mouth as needed. [facility] mg capsule 11-22 09:57: 11 Yes 50mg Take 50 mg by mouth as needed. [facility] 50 mg capsule 11-22 09:57: 11 Yes 50mg Take 50 mg by mouth as needed. [facility] 50 mg capsule 11-22 09:57: 11 Yes 50mg Take 50 mg by mouth as needed. [facility] 50 mg capsule 11-22 09:57: 11 Yes 50mg Take 50 mg by mouth as needed. [facility] lisdexamfet amine 50 mg capsule 11-22 09:57: 11 Yes 50mg Take 50 mg by mouth as needed. [facility] 50 mg capsule 11-22 09:57: 11 Yes 50mg Take 50 mg by mouth as needed. [facility] lisdexamfet amine 50 mg capsule 11-22 09:57: 11 Yes 50mg Take 50 mg by mouth as needed. [facility] lisdexamfet amine 50 mg capsule 11-22 09:57: 11 Yes 50mg Take 50 mg by mouth as needed. [facility] 50 mg capsule 11-22 09:57: 11 Yes 50mg Take 50 mg by mouth as needed. [facility] lisdexamfet amine 50 mg capsule 2017-0 11-22 09:57: 11 Yes 50mg Take 50 mg by mouth as needed. [facility] Vital Signs Vital Name Observation Time Observation Value Comments Odilia quan Systolic blood pressure 2022-05-01 20:37:00 127 mm[Hg] [facility] Diastolic blood pressure 2022-05-01 20:37:00 81 mm[Hg] [facility] Heart rate 2022-05-01 20:37:00 98 /min [facility] Respiratory rate 2022-05-01 20:37:00 19 /min [facility] Body height 2022-05-01 20:37:00 180.3 cm [facility] Body weight 2022-05-01 20:37:00 132.45 kg [facility] BMI 2022-05-01 20:37:00 40.73 kg/m2 [facility] Oxygen saturation in Arterial blood by Pulse oximetry 2022-05-01 20:37:00 95 /min [facility] Systolic blood pressure 2022-04-30 00:04:00 137 mm[Hg] [facility] Diastolic blood pressure 2022-04-30 00:04:00 82 mm[Hg] [facility] Heart rate 2022-04-30 00:03:00 88 /min [facility] Body temperature 2022-04-30 00:03:[address] [facility] Respiratory rate 2022-04-30 00:03:00 18 /min [facility] Body height 2022-04-30 00:03:00 180.3 cm [facility] Body weight 2022-04-30 00:03:00 132.224 kg [facility] BMI 2022-04-30 00:03:00 40.66 kg/m2 [facility] Oxygen saturation in Arterial blood by Pulse oximetry 2022-04-30 00:03:00 99 /min [facility] Systolic blood pressure 2022-04-02 04:30:00 118 mm[Hg] [facility] Diastolic blood pressure 2022-04-02 04:30:00 67 mm[Hg] [facility] Heart rate 2022-04-02 04:30:00 67 /min [facility] Respiratory rate 2022-04-02 04:30:00 16 /min [facility] Oxygen saturation in Arterial blood by Pulse oximetry 2022-04-02 04:30:00 98 /min [facility] Body temperature 2022-04-02 02:36:[address] [facility] Body height 2022-04-02 02:36:00 177.8 cm [facility] Body weight 2022-04-02 02:36:00 129.729 kg [facility] BMI 2022-04-02 02:36:00 41.04 kg/m2 [facility] Systolic blood pressure 2022-03-14 19:36:00 126 mm[Hg] [facility] Diastolic blood pressure 2022-03-14 19:36:00 83 mm[Hg] [facility] Heart rate 2022-03-14 19:36:00 85 /min [facility] Respiratory rate 2022-03-14 19:36:00 21 /min [facility] Body height 2022-03-14 19:36:00 180.3 cm [facility] Body weight 2022-03-14 19:36:00 128.867 kg [facility] BMI 2022-03-14 19:36:00 39.62 kg/m2 [facility] Oxygen saturation in Arterial blood by Pulse oximetry 2022-03-14 19:36:00 97 /min [facility] Systolic blood pressure 2022-02-19 04:29:00 119 mm[Hg] [facility] Diastolic blood pressure 2022-02-19 04:29:00 66 mm[Hg] [facility] Heart rate 2022-02-19 04:29:00 80 /min [facility] Respiratory rate 2022-02-19 04:29:00 18 /min [facility] Oxygen saturation in Arterial blood by Pulse oximetry 2022-02-19 04:29:00 98 /min [facility] Body temperature 2022-02-19 02:28:[address] [facility] Body height 2022-02-19 02:28:[address] [facility] Body weight 2022-02-19 02:28:[address] [facility] BMI 2022-02-19 02:28:00 41.15 kg/m2 [facility] Systolic blood pressure 2021-12-27 02:46:00 170 mm[Hg] [facility] Diastolic blood pressure 2021-12-27 02:46:00 92 mm[Hg] [facility] Heart rate 2021-12-27 02:46:00 103 /min [facility] Body temperature 2021-12-27 02:46:[address] [facility] Respiratory rate 2021-12-27 02:46:00 18 /min [facility] Body height 2021-12-27 02:46:[address] [facility] Body weight 2021-12-27 02:46:00 127.007 kg [facility] BMI 2021-12-27 02:46:00 39.05 kg/m2 [facility] Oxygen saturation in Arterial blood by Pulse oximetry 2021-12-27 02:46:00 98 /min [facility] Systolic blood pressure 2020-01-16 08:39:00 116 mm[Hg] [facility] Diastolic blood pressure 2020-01-16 08:39:00 74 mm[Hg] [facility] Body temperature 2020-01-16 08:39:[address] [facility] Heart rate 2020-01-16 08:31:00 90 /min [facility] Respiratory rate 2020-01-16 08:31:00 16 /min [facility] Body height 2020-01-16 08:31:[address] [facility] Body weight 2020-01-16 08:31:[address] [facility] BMI 2020-01-16 08:31:00 40.18 kg/m2 [facility] Oxygen saturation in Arterial blood by Pulse oximetry 2020-01-16 08:31:00 100 /min [facility] Systolic blood pressure 2020-01-16 08:39:00 116 mm[Hg] [facility] Diastolic blood pressure 2020-01-16 08:39:00 74 mm[Hg] [facility] Body temperature 2020-01-16 08:39:[address] [facility] Heart rate 2020-01-16 08:31:00 90 /min [facility] Respiratory rate 2020-01-16 08:31:00 16 /min [facility] Body height 2020-01-16 08:31:00 177.8 cm [facility] Body weight 2020-01-16 08:31:00 127.007 kg [facility] BMI 2020-01-16 08:31:00 40.18 kg/m2 [facility] Oxygen saturation in Arterial blood by Pulse oximetry 2020-01-16 08:31:00 100 /min [facility] Systolic blood pressure 2020-01-05 18:22:00 116 mm[Hg] [facility] Diastolic blood pressure 2020-01-05 18:22:00 79 mm[Hg] [facility] Heart rate 2020-01-05 18:22:00 74 /min [facility] Body weight 2020-01-05 18:22:00 141.976 kg [facility] Systolic blood pressure 2020-01-05 18:22:00 116 mm[Hg] [facility] Diastolic blood pressure 2020-01-05 18:22:00 79 mm[Hg] [facility] Heart rate 2020-01-05 18:22:00 74 /min [facility] Body weight 2020-01-05 18:22:00 141.976 kg [facility] Systolic blood pressure 2019-12-15 19:03:00 121 mm[Hg] [facility] Diastolic blood pressure 2019-12-15 19:03:00 84 mm[Hg] [facility] Heart rate 2019-12-15 19:03:00 99 /min [facility] Systolic blood pressure 2019-11-28 03:37:00 165 mm[Hg] [facility] Diastolic blood pressure 2019-11-28 03:37:00 100 mm[Hg] [facility] Heart rate 2019-11-28 03:37:00 101 /min [facility] Body temperature 2019-11-28 03:37:[address] [facility] Respiratory rate 2019-11-28 03:37:00 16 /min [facility] Body weight 2019-11-28 03:37:00 141.999 kg [facility] Oxygen saturation in Arterial blood by Pulse oximetry 2019-11-28 03:37:00 97 /min [facility] Procedures Procedure Date / Time Performed Performing Clinician Source POCT MOLECULAR FLU 2022-04-30 00:05:00 Unknown, Attend ing [facility] MAGNESIUM 2022-04-02 03:45:00 [facility] TROPONIN I 2022-04-02 03:45:00 [facility] COMP. METABOLIC PANEL (29092) 2022-04-02 03:45:[address] [facility] CBC WITH DIFF 2022-04-02 03:45:00 Singer Ankush [facility] SLEEP STUDY DATA REPORT 2022-03-28 05:01:00 Doct or Unassigned, [facility] INSURANCE CORRESPONDENCE 2022-03-18 05:01:00 Doc tor Unassigned, [facility] CONSENT/REFUSAL FOR DIAGNOSIS AND TREATMENT 2022-03-14 19:04:49 Doctor Unassigned, [facility] EKG-12 LEAD 2022-02-19 05:43:33 Daquan Ponce [facility] TROPONIN I 2022-02-19 04:50:00 Daquan Ponce [facility] XR CHEST 2 VW 2022-02-19 03:12:00 Daquan Ponce [facility] TROPONIN I 2022-02-19 02:47:00 [facility] HORMONE 2022-02-19 02:47:[address] [facility] COMP. METABOLIC PANEL (67808) 2022-02-19 02:47:[address] [facility] CBC WITH DIFF 2022-02-19 02:47:00 Daquan Ponce [facility] URINALYSIS 2022-02-19 02:47:00 Daquan Ponce [facility] N-TERMINAL PRO-BNP 2022-02-19 02:47:[address] [facility] URINE DRUG (IMMUNOASSAY) - COMPREHENSIVE DRUG SCREEN W/O REFLEX 2022-02-19 02:47:[address] [facility] CONSENT/REFUSAL FOR DIAGNOSIS AND TREATMENT 2022-02-19 02:21:07 Doctor Unassigned, [facility] COVID-19 (ID NOW RAPID TESTING) 2021-12-27 03:45:[address] [facility] CT CERVICAL SPINE WO CONTRAST 2021-12-27 03:36:[address] [facility] CT HEAD WO CONTRAST 2021-12-27 03:36:[address] [facility] CT LUMBAR SPINE WO CONTRAST 2021-12-27 03:36:[address] [facility] CT THORACIC SPINE WO CONTRAST 2021-12-27 03:36:[address] [facility] NOTICE OF PRIVACY PRACTICES 2021-12-27 02:44:41 Doctor Unassigned, [facility] CONSENT/REFUSAL FOR DIAGNOSIS AND TREATMENT 2021-12-27 02:40:50 Doctor Unassigned, [facility] NOTICE OF PRIVACY PRACTICES 2021-06-23 04:27:38 Doctor Unassigned, [facility] ASSIGNMENT OF BENEFITS 2020-01-16 08:26:08 Docto r Unassigned, [facility] NOTICE OF PRIVACY PRACTICES 2020-01-16 08:25:54 Doctor Unassigned, [facility] CONSENT/REFUSAL FOR DIAGNOSIS AND TREATMENT 2020-01-16 08:25:37 Doctor Unassigned, [facility] XR FOOT 3+ VW LEFT 2019-12-15 18:52:[address] [facility] XR ANKLE 3+ VW BILATERAL 2019-11-28 04:10:[address] [facility] XR FOOT 3+ VW LEFT 2019-11-28 04:10:[address] [facility] XR TIBIA FIBULA 2 VW LEFT 2019-11-28 04:10:[address] [facility] Encounters Start Date/Time End Date/Time Encounter Type Admission Type Attending [facility] Facility Care Department Encounter ID Source 2021-04-20 08:49:49 Emergency [facility] [id number] [facility] 2022-08-24 20:00:00 2022-08-24 20:00:00 Outpatient R TYLOR BARRETT STRAHIL [facility] [id number] [facility] 2022-08-19 20:00:00 2022-08-19 20:00:00 Outpatient R TYLOR BARRETT STRANHDavid [facility] [id number] [facility] 2022-05-04 00:00:00 2022-05-04 00:00:00 Patient Secure Msg Heck Fredy [place] [id number] 350.1.13.10 4.2.7.2.686 [id number] [facility] 2022-05-03 08:59:09 2022-05-03 23:59:00 [facility] [id number] [facility] 2022-05-01 14:30:00 2022-05-01 15:00:00 Office Visit Tylor Barrett [facility] [id number] 350.1.13.10 4.2.7.2.686 [id number] [facility] 2022-05-01 14:30:00 2022-05-01 14:30:00 Outpatient R MARYPARKERLESTERTYLOR MARYPARKERTYLOR BATISTA [facility] [id number] [facility] 2022-04-29 18:00:00 2022-04-29 18:22:24 Outpatient R KINJAL CANO [facility] [id number] [facility] 2022-04-29 18:00:00 2022-04-29 18:22:24 Urgent Care Kinjal Cano Unknown, Attending [facility] [id number] 350.1.13.10 4.2.7.2.686 [id number] [facility] 2022 08:45:15 2022 23:59:00 Outpatient CHRISTINE GILLETTEAVA [facility] [id number] [facility] 2022 00:00:00 2022 00:00:00 [facility] [id number] 350.1.13.10 4.2.7.2.686 [id number] [facility] 2022-04-06 00:00:00 2022-04-06 00:00:00 [facility] [id number] 350.1.13.10 4.2.7.2.686 [id number] [facility] 2022-04-01 21:46:00 2022-04-02 00:04:00 Emergency X ANKUSH HANSON [facility] E[facility] [id number] [facility] 2022-04-01 21:46:00 2022-04-02 00:04:00 Emergency Ankush Hanson [facility] [id number] 350.1.13.10 4.2.7.2.686 [id number] [facility] 2022-04-01 00:00:00 2022-04-01 00:00:00 Telephone Maria R [facility] BUILDING [id number] 350.1.13.10 4.2.7.2.686 [id number] [facility] 2022-03-29 14:00:00 2022-03-29 14:00:00 Outpatient R MARIA R [facility] [id number] [facility] 2022-03-28 10:00:00 2022-03-28 10:15:00 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 [facility] Tylor Barrett [facility] 1.0.114 350.1.13.10 4.2.7.2.686 [id number] [facility] 2022-03-28 10:00:00 2022-03-28 10:00:00 Outpatient R TYLOR BARRETT STRANHDavid [facility] [id number] [facility] 2022-03-28 00:00:00 2022-03-28 00:00:00 Orders Only Doctor Unassigned, [facility] [place] [id number] 350.1.13.10 4.2.7.2.686 [id number] [facility] 2022-03-27 00:00:00 2022-03-27 00:00:00 [facility] 1.840.114 350.1.13.10 4.2.7.2.686 [id number] [facility] 2022-03-18 00:00:00 2022-03-18 00:00:00 Orders Only Doctor Unassigned, [facility] 1.0.114 350.1.13.10 4.2.7.2.686 [id number] [facility] 2022-03-14 14:20:00 2022-03-14 14:53:24 [facility] [id number] [facility] 2022-03-14 14:20:00 2022-03-14 14:53:24 [facility] 1..114 350.1.13.10 4.2.7.2.686 [id number] [facility] 2022-03-14 00:00:00 2022-03-14 00:00:00 Orders Only Doctor Unassigned, [facility] 1..114 350.1.13.10 4.2.7.2.686 [id number] [facility] 2022-02-18 21:31:00 2022-02-19 00:44:00 Emergency X PONCE DAQUAN [facility] E[facility] [id number] [facility] 2022-02-18 21:31:00 2022-02-19 00:44:00 Emergency Daquan Ponce [facility] 1.84.114 350.1.13.10 4.2.7.2.686 [id number] [facility] 2021-12-26 21:57:00 2021-12-26 23:21:00 Emergency X LANDRY DE JESUS [facility] E[facility] [id number] [facility] 2021-12-26 21:57:00 2021-12-26 23:21:00 Emergency Landry De Jesus [facility] 1..114 350.1.13.10 4.2.7.2.686 [id number] [facility] 2021-06-22 22:34:00 2021-06-23 01:41:00 Emergency X FRED MICHELLE [facility] ERT [id number] [facility] 2021-06-22 00:00:00 2021-06-22 00:00:00 Orders Only Doctor Unassigned, [facility] 1.2.840.114 350.1.13.10 4.2.7.2.686 [id number] [facility] 2020-09-12 00:00:00 2020-09-12 00:00:00 Patient Outreach Ed Homero David [facility] 1.2.840.114 350.1.13.10 4.2.7.2.686 [id number] [facility] 2020-01-16 03:34:49 2020-01-16 03:52:00 Emergency [facility] 1.2.840.114 350.1.13.10 4.2.7.2.686 [id number] [facility] 2020-01-16 03:34:49 2020-01-16 03:52:00 Emergency [facility] 1.2.840.114 350.1.13.10 4.2.7.2.686 [id number] 2020-01-16 00:00:00 2020-01-16 00:00:00 [facility] 1.2840.114 350.1.13.10 4.2.7.2.686 [id number] [facility] 2020-01-16 00:00:00 2020-01-16 00:00:00 Patient Secure Msg Doctor Unassigned, [facility] BERNADINE FINNEY 1.2.840.114 350.1.13.10 4.2.7.2.686 [id number] [facility] 2020-01-16 00:00:00 2020-01-16 00:00:00 [facility] 1.2.840.114 350.1.13.10 4.2.7.2.686 [id number] 2020-01-05 13:13:21 2020-01-05 13:28:21 [facility] 1.2.840.114 350.1.13.10 4.2.7.2.686 [id number] [facility] 2020-01-05 13:13:21 2020-01-05 13:28:21 [facility]helle العل[facility] 1.2.840.114 350.1.13.10 4.2.7.2.686 [id number] 2020-01-05 13:00:00 2020-01-05 13:00:00 Outpatient Dayanara LEARY [facility] [id number] [facility] 2020-01-05 00:00:00 2020-01-05 00:00:00 Letter (Out) [facility] michelle العلي 1.2.840.114 350.1.13.10 4.2.7.2.686 [id number] [facility] 2020-01-05 00:00:00 2020-01-05 00:00:00 Letter (Out) [facility] michelle العلي 1.2.840.114 350.1.13.10 4.2.7.2.686 [id number] 2019-12-21 13:15:00 2019-12-21 13:15:00 Outpatient R SAPPHIRE [facility] [id number] [facility] 2019-12-15 13:32:43 2019-12-15 23:59:00 Outpatient R LARISA LUND [facility] [id number] [facility] 2019-12-15 13:32:00 2019-12-15 23:59:00 Hospital Encounter aLrisa Ludn [facility] 1.2.840.114 350.1.13.10 4.2.7.2.686 [id number] [facility] 2019-12-15 13:56:23 2019-12-15 14:11:23 Office Visit Irma Leary [facility] michelle العلي 1.2.840.114 350.1.13.10 4.2.7.2.686 [id number] [facility] 2019-12-15 00:00:00 2019-12-15 00:00:00 Telephone LundJonijuanita Hernandez [facility] michelle العلي 1.2.840.114 350.1.13.10 4.2.7.2.686 [id number] [facility] 2019-12-15 00:00:00 2019-12-15 00:00:00 Letter (Out) [facility] 1.2.840.114 350.1.13.10 4.2.7.2.686 [id number] [facility] 2019-12-01 00:00:00 2019-12-01 00:00:00 Letter (Out) [facility] 1.2.840.114 350.1.13.10 [id number] [facility] 2019-11-30 13:30:00 2019-11-30 13:30:00 Outpatient R IRMA LEARY [facility] [id number] [facility] 2019-11-30 00:00:00 2019-11-30 00:00:00 [facility] ال[facility]لي [id number] [id number] [facility] 2019-11-27 22:41:26 2019-11-28 00:21:00 Emergency Cristi R[facility] [id number] [facility] 2019-11-27 22:41:26 2019-11-28 00:21:00 Emergency X CRISTI RANGEL [facility] ERT [id number] [facility] Results Test Description Test Time Test Comments Results Result Co mments Source [facility] [id number] 00:17:17* Test Item Value Reference Range Interpretation Comme nts POCT Molecular FluA (test co de = 79396-8) Negative Negative POCT Molecular FluB (test co de = 66322-5) Negative Negative Lab Interpretation (test cod e = 04163-6) Normal [facility] [id number] 04:49:36* Test Item Value Reference Range Interpretation Comments TROPONIN I (test code = 5081745917) 0.002 ng/mL See_Comment [Automated message] The system which generated this result transmitted reference range: <=0.034. The reference range was not used to interpret this result as normal/abnormal. JURGEN (test code = JURGEN) Reference (Normal) Range (defined by the 99th percentile reference [...] to patient's use of biotin. Lab Interpretation (test code = 82766-2) Normal [facility]2022-10-11 04:38:14* Test Item Value Reference Range Interpretation Comme nts MAGNESIUM (test code = 2157704389) 2.2 mg/dL 1.7-2.4 Lab Interpretation (test cod e = 97007-8) Normal [facility]. METABOLIC PANEL (38161)2022-04-02 04:37:54* Test Item Value Reference Range Interpretation Comme nts NA (test code = 4470526418) 140 mmol/L 135-145 K (test code = 1008506709) 4.4 mmol/L 3.5-5 CL (test code = 5342324743) 104 mmol/L 98-108 CO2 TOTAL (test code = 8290958448) 27 mmol/L 23-31 AGAP (test code = 7880731357) 2-16 BUN (test code = 8200400009) 12 mg/dL 7-23 GLUCOSE (test code = 3802848932) 80 mg/dL 70-110 CREATININE (test code = 6335693234) 1.11 mg/dL 0.6-1.25 TOTAL BILI (test code = 4087541046) 0.5 mg/dL 0.1-1.1 CALCIUM (test code = 8340006514) 10.4 mg/dL 8.6-10.6 T PROTEIN (test code = 1040659603) 6.8 g/dL 6.3-8.2 ALBUMIN (test code = 0728834167) 4.6 g/dL 3.5-5 ALK PHOS (test code = 6100532955) 92 U/L 34-122 ALTv (test code = 1742-6) 22 U/L 5-50 AST(SGOT) (test code = 4533376126) 20 U/L 13-40 eGFR (test code = 6768757043) mL/min/1.73m2 JURGEN (test code = JURGEN) Association of [...] or urine or abnormalities in imaging tests). [facility] WITH [id number] 03:52:29* Test Item Value Reference Range Interpretation Comme nts WBC (test code = 6690-2) See_Comment [Automated [employer]] The system which generated this result transmitted reference range: 4.20 - 10.70 10*3/?L. The reference range was not used to interpret this result as normal/abnormal. RBC (test code = 789-8) See_Comment [Parabel] The system which generated this result transmitted reference range: 4.26 - 5.52 10*6/?L. The reference range was not used to interpret this result as normal/abnormal. HGB (test code = 718-7) 15.9 g/dL 12.2-16.4 HCT (test code = 4544-3) 44.6 % 38.4-49.3 MCV (test code = 787-2) 84.6 fL 81.7-95.6 MCH (test code = 785-6) 30.2 pg 26.1-32.7 MCHC (test code = 786-4) 35.7 g/dL 31.2-35 H RDW-SD (test code = 79221-9) 35.8 fL 38.5-51.6 L RDW-CV (test code = 788-0) 11.9 % 12.1-15.4 L PLT (test code = 777-3) See_Comment [Parabel] The system which generated this result transmitted reference range: 150 - 328 10*3/?L. The reference range was not used to interpret this result as normal/abnormal. MPV (test code = 96263-5) 9.9 fL 9.8-13 NRBC/100 WBC (test code = 9822197210) See_Comment [Automated me ssage] The system which generated this result transmitted reference range: 0.0 - 10.0 /100 WBCs. The reference range was not used to interpret this result as normal/abnormal. NRBC x10^3 (test code = 2200315591) See_Comment [Automated messa ge] The system which generated this result transmitted reference range: 10*3/?L. The reference range was not used to interpret this result as normal/abnormal. GRAN MAT (NEUT) % (test code = 770-8) 58.5 % IMM GRAN % (test code = 4084392195) 0.20 % LYMPH % (test code = 736-9) 28.7 % MONO % (test code = 5905-5) 7.0 % EOS % (test code = 713-8) 5.2 % BASO % (test code = 706-2) 0.4 % GRAN MAT x10^3(ANC) (test code = 8853247154) 5.56 10*3/uL 1.99-6.95 IMM GRAN x10^3 (test code = 2772993284) 0-0.06 LYMPH x10^3 (test code = 731-0) 2.72 10*3/uL 1.09-3.23 MONO x10^3 (test code = 742-7) 0.66 10*3/uL 0.36-1.02 EOS x10^3 (test code = 711-2) 0.49 10*3/uL 0.06-0.53 BASO x10^3 (test code = 704-7) 0.04 10*3/uL 0.01-0.09 Lab Interpretation (test code = 49329-9) Abnormal [facility] 3+ VW [id number] 18:59:40HISTORY: Reinjured left since last x-ray study of 11/27/2019.. FINDINGS: AP, lateral, oblique views of left foot are obtained and comparedwith 11/27/2019 study. No acute fracture or dislocation detected.Firstmetatarsus varus and hallux valgus deformity noted without significantdegenerative changes in the first MTP joint. CONCLUSIONS: No acute fracture or dislocation in left foot. [facility], Radiant Result s Inft User - 12/15/2019 2:00 PM CDTHISTORY: Reinjured left since last x-ray study of 11/27/2019..FINDINGS: AP, lateral, oblique views of left foot are obtained and comparedwith 11/27/2019 study. No acute fracture or dislocation detected. Firstmetatarsus varus and hallux valgus deformity noted without s ignificantdegenerative changes in the first MTP joint.CONCLUSIONS: No acute fracture or dislocationin left foot.[facility]"
--- NOTE | 2023-06-18 17:27 | RAD REPORT ---
EXAM DESCRIPTION: RAD - Chest Single View - 06/18/2023 5:17 pm CLINICAL HISTORY: PALPITATIONS Chest pain. COMPARISON: Chest Single View dated 01/27/2023 FINDINGS: Portable technique limits examination quality. The lungs are grossly clear. The heart is normal in size. No displaced fractures. IMPRESSION: No acute intrathoracic process suspected.
[2023-06-18 17:32] LABS: Absolute Lymphocytes (CBC) 2.5 K/uL (0.7-4.9); Hematocrit 46.6 % (39.6-49.0); MCV 87.7 fL (80-100); MPV 7.8 fL (7.6-11.3); Platelets 228 thou/uL (152-406); RBC Red Blood Cell Count 5.31 M/uL (4.33-5.43)
[2023-06-18 17:48] LABS: Potassium 4.1 mEq/L (3.5-5.1); Troponin High Sensitivity 3.9 pg/mL (<58.9)
--- NOTE | 2023-06-18 18:30 | EDPHYS ---
Physician Documentation [facility] Name: Tate Mcgill Age: 23 yrs Sex: Male : 2000 Arrival Date: 06/18/2023 Time: 16:44 Bed 6 Private MD: ED Physician Josh Jerez HPI: 06/18 16:58 This 23 yrs old Male presents to ER via Ambulatory with complaints of Fast ec2 heart rate. 16:58 Patient arrives today due to concern for elevated heart rate. Patient reports that he ec2 felt palpitations and subsequently checked his watch and noted his heart rate to be in the 140s. Patient reports that he has had similar episodes in the past, states that he has not had a diagnosis. Denies any history of arrhythmia. Patient reports no chest pain or difficulty breathing, reports no recent illnesses, no nausea or vomiting or diarrhea.. Historical: - Allergies: 16:55 Albuterol; hb - PSHx: 16:55 Cholecystectomy; Appendectomy; Ear Tubes; hb - Immunization history:: Adult Immunizations up to date. - Social history:: Smoking status: Patient denies any tobacco usage or history of. ROS: 16:58 Constitutional: as per hpi ec2 Exam: 16:58 Constitutional: GEN: NAD Head: atraumatic Eyes: EOMI Ears: External ears are ec2 normal. CV: regular rate, regular rhythm LUNGS: no respiratory distress, no wheezes, no rales, no rhonchi ABD: non-distended SKIN: no evidence of rashes MSK: no evidence of trauma NEURO: moves all extremities equally Vital Signs: 16:53 BP 139 / 91; Pulse 80; Resp 16; Temp 97.8; Pulse Ox 100% on R/A; Weight 127.01 kg; hb Height 5 ft. 10 in. ; Pain 0/10; 17:33 BP 139 / 85; Pulse 78; Resp 15; Pulse Ox 100% ; ko1 19:04 BP 134 / 78; Pulse 75; Resp 16; Pulse Ox 99% ; ko1 16:53 Body Mass Index 40.18 (127.01 kg, 177.8 cm) hb 16:53 Pain Scale: Adult hb MDM: 16:58 Patient medically screened. ec2 16:58 Data reviewed: vital signs. ED course: Patient arrives today due to concern for ec2 palpitations. Examination remarkable for well-appearing nontoxic dividual is otherwise in no acute distress with reassuring cardiopulmonary examination. Will obtain lab work, EKG, chest x-ray for further assessment of the patient complaint. Currently considering processes such as arrhythmia, electrolyte disturbances, anemia.. 17:13 ED course: EKG independently reviewed and interpreted by me, shows normal sinus rhythm, ec2 rate of 81, no acute ST segment elevations, nonconcerning intervals.. 17:27 ED course: Chest x-ray shows no acute intrathoracic process.. ec2 18:08 ED course: Metabolic profile with appropriate electrolytes. Troponin within normal ec2 ranges. On reassessment patient with no recurrence of palpitations. Will discharge home have follow-up with cardiology. Return precautions given. . 06/18 16:58 Order name: Basic Metabolic Panel; Complete Time: 18:08 ec2 06/18 16:58 Order name: CBC with Diff; Complete Time: 17:40 ec2 06/18 16:58 Order name: Troponin HS; Complete Time: 18:08 ec2 06/18 16:58 Order name: XRAY Chest (1 view); Complete Time: 17:27 ec2 06/18 16:58 Order name: EKG; Complete Time: 16:59 ec2 06/18 16:58 Order name: Cardiac monitoring; Complete Time: 17:03 ec2 06/18 16:58 Order name: EKG - Nurse/Tech; Complete Time: 17:13 ec2 06/18 16:58 Order name: IV Saline Lock; Complete Time: 17:25 ec2 06/18 16:58 Order name: Labs collected and sent; Complete Time: 17:25 ec2 06/18 16:58 Order name: O2 Per Protocol; Complete Time: 17:03 ec2 06/18 16:58 Order name: O2 Sat Monitoring; Complete Time: 17:03 ec2 Administered Medications: No medications were administered Disposition Summary: 06/18/23 18:29 Discharge Ordered Notes: Location: Home ec2 Condition: Stable ec2 Diagnosis - Palpitations ec2 Followup: ec2 - With: Private Physician - When: - Reason: Recheck today's complaints Discharge Instructions: - Discharge Summary Sheet ec2 - Palpitations ec2 Forms: - Work release form ko1 - Medication Reconciliation Form ec2 - Thank You Letter ec2 - Antibiotic Education ec2 - Prescription Opioid Use ec2 - Patient Portal Instructions ec2 - Leadership Thank You Letter ec2 Signatures: DispTyra Florence RN RN hb Corral, Edwin, MD MD ec2
--- NOTE | 2023-06-18 18:30 | ER ---
Nurse's Notes [facility] Name: Tate Mcgill Age: 23 yrs Sex: Male : 2000 Arrival Date: 06/18/2023 Time: 16:44 Bed 6 Private MD: Diagnosis: Palpitations Presentation: 06/18 16:53 Chief complaint: Patient states: "i was folding jeans at work and my heart started to hb beat really fast." Reports HR 140s during episode today. Denies CP/SOB. Coronavirus screen: At this time, the client does not indicate any symptoms associated with coronavirus-19. Ebola Screen: No symptoms or risks identified at this time. Initial Sepsis Screen: Does the patient meet any 2 criteria? No. Patient's initial sepsis screen is negative. Does the patient have a suspected source of infection? No. Patient's initial sepsis screen is negative. Risk Assessment: Do you want to hurt yourself or someone else? Patient reports no desire to harm self or others. Onset of symptoms was June 18, 2023. 16:53 Method Of Arrival: Ambulatory 16:53 Acuity: DINORA 3 hb Historical: - Allergies: 16:55 Albuterol; hb - PSHx: 16:55 Cholecystectomy; Appendectomy; Ear Tubes; hb - Immunization history:: Adult Immunizations up to date. - Social history:: Smoking status: Patient denies any tobacco usage or history of. Screenin:33 [facility] ED Fall Risk Assessment (Adult) History of falling in the last 3 months, ko1 including since admission No falls in past 3 months (0 pts) Confusion or Disorientation No (0 pts) Intoxicated or Sedated No (0 pts) Impaired Gait No (0 pts) Mobility Assist Device Used No (0 pt) Altered Elimination No (0 pt) Score/Fall Risk Level 0 - 2 = Low Risk Oriented to surroundings, Maintained a safe environment, Educated pt \\T\\ family on fall prevention, incl call for assistance when getting out of bed, Assessed \\T\\ reinforced patient's understanding of fall precautions, Provided non-skid footwear, Hourly rounding (assess needs \\T\\ fall precautionary measures) done, Used ambulatory aids as needed (educated on \\T\\ assisted with), Used gait belt as appropriate. Abuse screen: Denies threats or abuse. Denies injuries from another. Nutritional screening: No deficits noted. Tuberculosis screening: No symptoms or risk factors identified. Assessment: 17:33 General: Appears in no apparent distress. comfortable, Behavior is calm, cooperative, ko1 appropriate for age. Pain: Denies pain. Neuro: No deficits noted. Cardiovascular: Reports palpitations. Respiratory: No deficits noted. GI: No deficits noted. : No deficits noted. EENT: No deficits noted. Derm: No deficits noted. Musculoskeletal: No deficits noted. Vital Signs: 16:53 BP 139 / 91; Pulse 80; Resp 16; Temp 97.8; Pulse Ox 100% on R/A; Weight 127.01 kg; hb Height 5 ft. 10 in. ; Pain 0/10; 17:33 BP 139 / 85; Pulse 78; Resp 15; Pulse Ox 100% ; ko1 19:04 BP 134 / 78; Pulse 75; Resp 16; Pulse Ox 99% ; ko1 16:53 Body Mass Index 40.18 (127.01 kg, 177.8 cm) hb 16:53 Pain Scale: Adult hb ED Course: 16:45 Patient arrived in ED. ae5 16:45 Josh Jerez MD is Attending Physician. ec2 16:55 Triage completed. hb 16:56 Arm band placed on. hb 17:13 Radha Buckner, RN is Primary Nurse. ko1 17:18 XRAY Chest (1 view) In Process Unspecified. EDMS 17:23 Inserted saline lock: 20 gauge in right antecubital area, using aseptic technique. ko1 Blood collected. 17:25 Basic Metabolic Panel Sent. ko1 17:25 CBC with Diff Sent. ko1 17:25 Troponin HS Sent. ko1 17:33 Patient has correct armband on for positive identification. Placed in gown. Bed in low ko1 position. Call light in reach. Side rails up X 1. Client placed on continuous cardiac and pulse oximetry monitoring. NIBP monitoring applied. machine tech on. Door closed. Noise minimized. Lights dimmed. Warm blanket given. Pillow given. 19:04 Provided Education on: na. ko1 19:04 No provider procedures requiring assistance completed. IV discontinued, intact, ko1 bleeding controlled, No redness/swelling at site. Pressure dressing applied. Administered Medications: No medications were administered Medication: 17:33 VIS not applicable for this client. ko1 Outcome: 18:29 Discharge ordered by . irena 19:04 Discharged to home ambulatory, ko1 19:04 Condition: stable 19:04 Discharge instructions given to patient, Instructed on discharge instructions, follow up and referral plans. Demonstrated understanding of instructions, follow-up care, 19:05 Patient left the ED. ko1 Signatures: Dispatcher [employer] EDTyra Tovar RN RN hb Radah Buckner RN RN ko1 Josh Jerez MD MD ec2 Espinosa, Alexia ae5 Corrections: (The following items were deleted from the chart) 16:55 16:53 BP 139 / 91; Pulse 80bpm; Resp 16bpm; Pulse Ox 100% RA; Temp 97.8F; hb hb
[2023-06-18 20:12] VITALS: BP 134/78; TEMP 97.8; O2SAT 99
--- NOTE | 2023-06-19 13:20 | EKG ---
Test Date: 2023-06-18 Test Time: 17:09:35 Computer Analyst: MIRZA MEASUREMENT RESULTS: Intervals: Rate: 81 GA: 142 QRSD: 92 QT: 348 QTc: 404 [place]: P: 33 GA: 142 QRS: 60 T: 15 INTERPRETIVE STATEMENTS: Normal sinus rhythm with sinus arrhythmia Normal ECG Compared to ECG 01/27/2023 17:56:13 No significant changes Electronically Signed On 06-19-23 13:18:43 LOAD DISPATCHER by Gilbert Stanley
== END ==
LOC: ER 16:44
DX: R00.2 Palpitations (principal); Z88.8 Allergy status to other drugs, medicaments and biological substances
CPT/HCPCS: 36415; 71045; 80048; 84484; 85025; 93005; 99284

== ENCOUNTER 2024-09-21 10:46 | Emergency (ER) | payer BC ==
--- OUTSIDE RECORDS SUMMARY | 2024-09-21 10:52 | XMS REPORT | Continuity of Care Document ---
Author Name Unknown Address [address] [facility] [address] [place] [address] Organization [facility] [place] Address [address] [facility] [address] [place] [address] Care Team Providers Care Brazer Electronic Name Role Phone Melquiades Kemp MD Attending Clinician [phone] Rosio Odell RN Attending Clinician Unavailable Last [place] Attending Clinician [phone] Problems Condition Name Condition Details Condition Category Status Onset Date Resolution Date Last Treatment Date Treating Clinician Comments Source Morbid obesity Morbid Obesity Problem Active 2023-06 0 00:00: 00 [facility] History of Malignant melanoma History of Malignant Melanoma Problem Active 2023-06 0 00:00: 00 [facility] Body mass index 40+ - severely obese Body Mass Index 40+ - Severely Obese Problem Active 2023-06 0- 00:00: 00 [facility] Social History Smoking Status Start Date Stop Date Source Never Smoker [facility] Medications Ordered Medication Name Filled Medication Name Start Date Stop Date Current Medication? Ordering Clinician Indication Dosage Frequency Signature (SIG) Comments Components Source dexamethaso ne sodium phosphate 10 mg/mL injection solution Take 1 mL by injection route. dexamethaso ne sodium phosphate 10 mg/mL injection solution Take 1 mL by injection route. 16 17:17: 00 No 1mL dexamethas one sodium phosphate 10 mg/mL injection solution Take 1 mL by injection route. [facility] Immunizations Ordered Immunization Name Filled Immunization Name Date Status Comments Source DTaP, unspecified formulation - ML DTaP, unspecified formulation - ML Unknown Completed [facility] MMR - ML MMR - ML Unknown Completed [facility] IPV - ML IPV - ML Unknown Completed [facility] influenza, seasonal, injectable, preservative free - ML influenza, seasonal, injectable, preservative free - ML Unknown Completed [facility] Hib (PRP-T) - ML Hib (PRP-T) - ML Unknown Completed [facility] Hep B, adolescent or pediatric - ML Hep B, adolescent or pediatric - ML Unknown Completed [facility] varicella - ML varicella - ML Unknown Completed [facility] pneumococcal conjugate PCV 7 - ML pneumococcal conjugate PCV 7 - ML Unknown Completed [facility] agueda HPV9 - ML HPV9 - ML Unknown Completed [facility] HPV, quadrivalent - ML HPV, quadrivalent - ML Unknown Completed [facility] meningococcal MCV4P - ML meningococcal MCV4P - ML Unknown Completed [facility] Tdap - ML Tdap - ML Unknown Completed [facility] ical Hep A, ped/adol, 2 dose - ML Hep A, ped/adol, 2 dose - ML Unknown Completed [facility] Vital Signs Vital Name Observation Time Observation Value Comments S ource BP Systolic 2024-03-29 00:00:00 117 mm[Hg] [facility] Body Weight 2024-03-29 00:00:00 4740 [oz_av] [facility] Height 2024-03-29 00:00:00 70 [in_i] [facility] BMI (Body Mass Index) 2024-03-29 00:00:00 42.5 kg/m2 [facility] BP Diastolic 2024-03-29 00:00:00 56 mm[Hg] [facility] Body Weight 2024-03-08 00:00:00 4704 [oz_av] [facility] BP Systolic 2024-03-08 00:00:00 120 mm[Hg] [facility] BP Diastolic 2024-03-08 00:00:00 68 mm[Hg] [facility] BMI (Body Mass Index) 2024-03-08 00:00:00 42.2 kg/m2 [facility] Height 2024-03-08 00:00:00 70 [in_i] [facility] Encounters Start Date/Time End Date/Time Encounter Type Admission Type Attending [facility] Care Department Encounter ID Source 2024-03-29 00:00:00 2024-03-29 00:00:00 Miguel Brooks MD: [address], [address], [place] [address] , Ph. [facility] [facility]* [id number] [facility] 2024-03-08 00:00:00 2024-03-08 00:00:00 Miguel Brooks MD: [address], [address], [place] [address] , Ph. [facility] [facility]* [id number] [facility] 2020-01-16 03:34:49 2020-01-16 03:52:00 Emergency Melquiades Kemp [facility] [id number] [id number] [id number] [id number] 2020-01-16 00:00:00 2020-01-16 00:00:00 [facility] 1.2.840.114 [id number] 4.2.7.2.686 [id number] 2020-01-05 13:13:21 2020-01-05 13:28:21 Office Visit [facility] [id number] [id number] [id number] [id number] 2020-01-05 00:00:00 2020-01-05 00:00:00 Letter (Out) [facility] [id number] 350.1.13.10 4.2.7.2.686 [id number] Results Test Description Test Time Test Comments Results Result Co mments Source [facility]
[2024-09-21] MEDS ORDERED: IBUPROFEN 200 MG TAB PO ONE (11:08)
[2024-09-21 11:30] LABS: Influenza A Ag Negative; Influenza B Ag Negative; SARS-CoV-2 Antigen Rapid Res Negative (Negative)
[2024-09-21] MEDS ORDERED: AZITHROMYCIN 250 MG TAB ONE (13:36)
--- NOTE | 2024-09-21 13:36 | EDPHYS ---
Physician Documentation [facility] Name: Tate Mcgill Age: 24 yrs Sex: Male : 2000 Arrival Date: 09/21/2024 Time: 10:46 Bed DX5 Private MD: ED Physician Diogenes Street HPI: 09/21 13:29 This 24 yrs old Male presents to ER via Ambulatory with complaints of Flu ludwin Symptoms. 13:29 The patient has shortness of breath at rest. Onset: The symptoms/episode began/occurred ludwin 3 day(s) ago. Duration: The symptoms are continuous, and are unchanged since they started. The patient's shortness of breath is aggravated by light activity, is alleviated by rest. The patient or guardian reports cough. Modifying factors: The symptoms are alleviated by nothing. the symptoms are aggravated by activity. Associated signs and symptoms: Pertinent positives: productive cough. Severity of symptoms: At their worst the symptoms were mild in the emergency department the symptoms are unchanged. Historical: - Allergies: 11:11 Albuterol; cm10 - Home Meds: 11:11 None [Active]; cm10 - PMHx: 11:11 None; cm10 - PSHx: 11:11 Appendectomy; Cholecystectomy; ear tubes; cm10 - Immunization history:: Adult Immunizations unknown. - Infectious Disease History:: Denies. - Social history:: Smoking status: Reported history of juuling and/or vaping. ROS: 13:31 Constitutional: Negative for fever, chills, and weight loss, Eyes: Negative for injury, ludwin pain, redness, and discharge, ENT: Negative for injury, pain, and discharge, Neck: Negative for injury, pain, and swelling, Cardiovascular: Negative for chest pain, palpitations, and edema, Abdomen/GI: Negative for abdominal pain, nausea, vomiting, diarrhea, and constipation, Back: Negative for injury and pain, : Negative for injury, bleeding, discharge, and swelling, MS/Extremity: Negative for injury and deformity, Skin: Negative for injury, rash, and discoloration, Neuro: Negative for headache, weakness, numbness, tingling, and seizure, Psych: Negative for depression, anxiety, suicide ideation, homicidal ideation, and hallucinations, Allergy/Immunology: Negative for hives, rash, and allergies, Endocrine: Negative for neck swelling, polydipsia, polyuria, polyphagia, and marked weight changes, Hematologic/Lymphatic: Negative for swollen nodes, abnormal bleeding, and unusual bruising, 13:31 Respiratory: Positive for cough, with green sputum, Exam: 13:31 Constitutional: This is a well developed, well nourished patient who is awake, alert, ludwin and in no acute distress. Head/Face: Normocephalic, atraumatic. Eyes: Pupils equal round and reactive to light, extra-ocular motions intact. Lids and lashes normal. Conjunctiva and sclera are non-icteric and not injected. Cornea within normal limits. Periorbital areas with no swelling, redness, or edema. ENT: Nares patent. No nasal discharge, no septal abnormalities noted. Tympanic membranes are normal and external auditory canals are clear. Oropharynx with no redness, swelling, or masses, exudates, or evidence of obstruction, uvula midline. Mucous membranes moist. Neck: Trachea midline, no thyromegaly or masses palpated, and no cervical lymphadenopathy. Supple, full range of motion without nuchal rigidity, or vertebral point tenderness. No Meningismus. Chest/axilla: Normal chest wall appearance and motion. Nontender with no deformity. No lesions are appreciated. Cardiovascular: Regular rate and rhythm with a normal S1 and S2. No gallops, murmurs, or rubs. Normal PMI, no JVD. No pulse deficits. Respiratory: Lungs have equal breath sounds bilaterally, clear to auscultation and percussion. No rales, rhonchi or wheezes noted. No increased work of breathing, no retractions or nasal flaring. Abdomen/GI: Soft, non-tender, with normal bowel sounds. No distension or tympany. No guarding or rebound. No evidence of tenderness throughout. Back: No spinal tenderness. No costovertebral tenderness. Full range of motion. Skin: Warm, dry with normal turgor. Normal color with no rashes, no lesions, and no evidence of cellulitis. MS/ Extremity: Pulses equal, no cyanosis. Neurovascular intact. Full, normal range of motion., bilateral aka Neuro: Awake and alert, GCS 15, oriented to person, place, time, and situation. Cranial nerves II-XII grossly intact. Motor strength 5/5 in all extremities. Sensory grossly intact. Cerebellar exam normal. Normal gait. Psych: Awake, alert, with orientation to person, place and time. Behavior, mood, and affect are within normal limits. 13:31 Musculoskeletal/extremity: DVT Exam: No signs of deep vein thrombosis. no pain, no swelling, no tenderness, negative Homans' sign noted on exam, no appreciated bluish discoloration, no erythema, no increased warmth, Vital Signs: 11:10 BP 126 / 83; Pulse 63; Resp 15; Temp 98.5; Pulse Ox 96% on R/A; Weight 129.27 kg; cm10 Height 5 ft. 11 in. ; Pain 7/10; 11:10 Body Mass Index 39.75 (129.27 kg, 180.34 cm) cm10 11:10 Pain Scale: Adult cm10 MDM: 11:00 Medical Screening Exam initiated ludiwn 13:32 Differential diagnosis: asthma, Bronchitis Chronic Obstructive Pulmonary Disease ludwin bronchitis, flu, URI, pneumonia. Antibiotic administration: The patient is discharged and will get outpatient antibiotics, Zithromax. Immunization status:. Data reviewed: vital signs, nurses notes. Consideration of Admission/Observation Escalation of care including admission/observation considered. I considered the following discharge prescriptions or medication management in the emergency department Medications were administered in the Emergency Department. See MAR. Test considered but Not performed: Labs: NO LABS. 09/21 11:01 Order name: COVID-19 Ag + Flu A+B Ag; Complete Time: 13:19 ludwin Administered Medications: 11:14 Drug: Ibuprofen PO 600 mg PO once Route: PO; cm10 13:55 Follow up: Response: No adverse reaction jl7 13:55 Drug: AZITHromycin PO 500 mg PO once Route: PO; 7 13:55 Follow up: Response: Medication administered at discharge. jl7 Disposition Summary: 09/21/24 13:35 Discharge Ordered Notes: Location: Home ludwin Problem: new ludwin Symptoms: have improved ludwin Condition: Stable ludwin Diagnosis - Acute upper respiratory infection, unspecified ludwin - Cough ludwin Followup: ludwin - With: Private Physician - When: 2 - 3 days - Reason: Recheck today's complaints, Continuance of care, Re-evaluation by your physician Discharge Instructions: - Discharge Summary Sheet ludwin - Upper Respiratory Infection, Adult ludwin - Upper Respiratory Infection, Adult, [id number] ludwin - Cough, Adult, [id number] ludwin - Cough, Adult ludwin Forms: - Medication Reconciliation Form ludwin - Antibiotic Education ludwin - Prescription Opioid Use ludwin - Patient Portal Instructions ludwin - Leadership Thank You Letter ludwin - Work release form jl7 Prescriptions: - Tessalon Perles 100 mg Oral capsule - take 2 capsule ORAL route every 8 hours As needed; 30 capsule; Refills: 0, ludwin Product Selection Permitted - Medrol (Boris) 4 mg Oral Tablets, Dose Pack - take 1 tablet ORAL route as directed - follow package instructions; 1 packet; ludwin Refills: 0, Product Selection Permitted - Zithromax 500 mg Oral Tablet - take 1 tablet ORAL route once daily for 5 days; 5 tablet; Refills: 0, Product ludwin Selection Permitted Signatures: Dispatcher [employer] EDDiogenes Chatman MD MD cha Leal, Jahala RN RN jl7 Ese Lopez RN RN cm10 Corrections: (The following items were deleted from the chart) 11:01 11:01 COVID-19 Ag + Flu A+B Ag+[id number] ordered. EDMS EDMS
--- NOTE | 2024-09-21 13:36 | ER ---
Nurse's Notes [facility] Name: Tate Mcgill Age: 24 yrs Sex: Male : 2000 Arrival Date: 09/21/2024 Time: 10:46 Bed DX5 Private MD: Diagnosis: Acute upper respiratory infection, unspecified;Cough Presentation: 09/21 11:10 Chief complaint: Patient states: FEVER, VOMITING, AND BODY ACHES ONSET LAST NIGHT. TMAX cm10 100.1. Coronavirus screen: Client denies travel out of the [place] in the last 14 days. Ebola Screen: Patient denies travel to an Ebola-affected area in the 21 days before illness onset. Initial Sepsis Screen: Does the patient meet any 2 criteria? No. Patient's initial sepsis screen is negative. Does the patient have a suspected source of infection? No. Patient's initial sepsis screen is negative. Risk Assessment: Do you want to hurt yourself or someone else? Patient reports no desire to harm self or others. Onset of symptoms was September 21, 2024. 11:10 Method Of Arrival: Ambulatory cm10 11:10 Acuity: DINORA 4 cm10 Triage Assessment: 11:11 General: Appears comfortable, Behavior is calm, cooperative. Neuro: No deficits noted. cm10 Level of Consciousness is awake, alert, obeys commands, Oriented to person, place, time, situation, Appropriate for age. Respiratory: Reports cough that is Airway is patent Respiratory effort is even, unlabored, Respiratory pattern is regular, symmetrical. Historical: - Allergies: 11:11 Albuterol; cm10 - Home Meds: 11:11 None [Active]; cm10 - PMHx: 11:11 None; cm10 - PSHx: 11:11 Appendectomy; Cholecystectomy; ear tubes; cm10 - Immunization history:: Adult Immunizations unknown. - Infectious Disease History:: Denies. - Social history:: Smoking status: Reported history of juuling and/or vaping. Screenin:56 [facility] ED Fall Risk Assessment (Adult) History of falling in the last 3 months, jl7 including since admission No falls in past 3 months (0 pts) Confusion or Disorientation No (0 pts) Intoxicated or Sedated No (0 pts) Impaired Gait No (0 pts) Mobility Assist Device Used No (0 pt) Altered Elimination No (0 pt) Score/Fall Risk Level 0 - 2 = Low Risk Oriented to surroundings, Maintained a safe environment. Abuse screen: Denies threats or abuse. Denies injuries from another. Nutritional screening: No deficits noted. Tuberculosis screening: No symptoms or risk factors identified. Vital Signs: 11:10 BP 126 / 83; Pulse 63; Resp 15; Temp 98.5; Pulse Ox 96% on R/A; Weight 129.27 kg; cm10 Height 5 ft. 11 in. ; Pain 7/10; 11:10 Body Mass Index 39.75 (129.27 kg, 180.34 cm) cm10 11:10 Pain Scale: Adult cm10 ED Course: 10:50 Patient arrived in ED. al6 11:[address] MD is Attending Physician. [facility] 11:11 Triage completed. cm10 11:12 Arm band placed on right wrist. Patient placed in waiting room. cm10 11:12 COVID swab sent to lab. cm10 11:12 COVID-19 Ag + Flu A+B Ag Sent. cm10 11:15 COVID-19 Ag + Flu A+B Ag Sent. [facility] 13:56 Patient has correct armband on for positive identification. Provided Education on: jl7 discharge. 13:56 No provider procedures requiring assistance completed. Patient did not have IV access jl7 during this emergency room visit. Administered Medications: 11:14 Drug: Ibuprofen PO 600 mg PO once Route: PO; 10 13:55 Follow up: Response: No adverse reaction 7 13:55 Drug: AZITHromycin PO 500 mg PO once Route: PO; 7 13:55 Follow up: Response: Medication administered at discharge. 7 Medication: 13:56 VIS not applicable for this client. jl7 Outcome: 13:35 Discharge ordered by . [facility] 13:56 Discharged to home ambulatory, [facility] 13:56 Condition: stable 13:56 Discharge instructions given to patient, Instructed on discharge instructions, follow up and referral plans. medication usage, Demonstrated understanding of instructions, follow-up care, medications, Prescriptions given X 3, 13:56 Patient left the ED. jl7 Signatures: Diogenes Street MD MD cha Leal, Jahala RN RN jl7 Debora Guillermo 6 Ese Lopez RN RN cm10 Ariana Gan [facility]
[2024-09-21 14:14] VITALS: BP 126/83; TEMP 98.5; O2SAT 96
== END 2024-09-21 13:56 | disposition home or self-care (01) ==
LOC: ER 10:46
DX: J06.9 Acute upper respiratory infection, unspecified (principal); F17.290 Nicotine dependence, other tobacco product, uncomplicated; Z88.8 Allergy status to other drugs, medicaments and biological substances
CPT/HCPCS: 36415; 87428